=== PATIENT | female | born 1940 | race Caucasian/White ===

== ENCOUNTER 2018-06-01 11:23 | Emergency (ER) | payer MEDICARE ==
[2018-06-01 12:27] LABS: Hemoglobin 13.9 g/dL (12.0-16.0); Mean Corpuscular Hemoglobin 42.4 pg (27.0-31.0); Mean Platelet Volume 5.7 fL (7.4-10.4); Platelet Count 413 thou/uL (130-400); RBC Distribution Width 12.7 % (11.5-14.5); Red Blood Cell (RBC) Count 3.27 mill/uL (4.20-5.40); White Blood Cell (WBC) Count 10.7 thou/uL (4.8-10.8)
[2018-06-01 12:33] LABS: ALT (SGPT) 12 U/L (8-55); AST (SGOT) 25 U/L (5-34); Albumin 4.5 g/dL (3.4-4.8); Alkaline Phosphatase 123 U/L (40-150); Anion Gap 17 mmol/L (10-20); BUN (Urea Nitrogen) 10 mg/dL (9.8-20.1); Bilirubin, Total 0.6 mg/dL (0.2-1.2); CK (CPK) 38 U/L (29-168); Calc. Creatinine Clearance 0 mL/min (70-130); Calcium 9.5 mg/dL (7.8-10.44); Carbon Dioxide 22 mmol/L (23-31); Chloride 96 mmol/L (98-107); Estimated GFR-MDRD 55; Globulin 2.8 g/dL (2.4-3.5); Glucose 122 mg/dL (83-110); Lipase 14 U/L (8-78); Potassium 3.8 mmol/L (3.5-5.1); Protein, Total 7.3 g/dL (6.0-8.3); Sodium 131 mmol/L (136-145)
[2018-06-01 12:41] LABS: Band 2 % (5-11); Eosinophils 1 % (0-10); Lymphocytes 14 % (21-51); MDiff Complete? YES; Monocytes 3 % (0-10); Neutrophil 80 % (42-75); PLT Morphology Comment Appears Increased
--- NOTE | 2018-06-01 12:43 | RAD ---
ACUTE ABDOMINAL SERIES: DATE: 06/01/2018. PROVIDED CLINICAL HISTORY: Abdominal pain. FINDINGS: Comparison chest radiograph 11/25/2015. Cardiac and mediastinal silhouette is unchanged in appearance . No focal consolidation, pleural fluid, or pneumothorax apparent. Supine and upright abdominal radiographs demonstrate a nonspecific bowel gas pattern. There is no ev idence for pneumoperitoneum. Surgical clips are seen in the right upper quadrant. IMPRESSION: 1. No evidence for an acute cardiopulmonary process. 2. Nonspecific bowel gas pattern. POS: [facility]
--- NOTE | 2018-06-01 15:32 | RAD ---
SUPINE ABDOMEN: INDICATIONS: Constipation. FINDINGS: The bowel gas pattern is unremarkable. There is scattered stool and gas in the colon, which appears unremarkable. Small bowel gas pattern is unremarkable. No abnormal calcification. Post cholecystec shaun clips noted. Osseous structures are unremarkable. IMPRESSION: Unremarkable bowel gas pattern. POS: [facility]
[2018-06-01] MEDS ORDERED: Magnesium Citrate 300 ML BOT ONE (16:04)
== END 2018-06-01 16:20 | disposition home or self-care (01) ==
LOC: ERS 11:23
DX: K59.00 Constipation, unspecified (principal); R55 Syncope and collapse
CPT/HCPCS: 36415; 74018; 74022; 80053; 82550; 83690; 84484; 85025; 93005

== ENCOUNTER 2018-06-20 12:55 | Emergency (ER) | payer MEDICARE ==
[2018-06-20 13:47] LABS: #Basophils 0.1 thou/uL (0.0-0.2); #Lymphocytes 1.1 thou/uL (1.20-3.40); #Monocytes 0.6 thou/uL (0.11-0.59); #Neutrophils 8.1 thou/uL (1.40-6.50); %Basophils 0.9 % (0.0-1.0); %Eosinophils 0.5 % (0.0-10.0); %Monocytes 6.2 % (0.0-10.0); %Neutrophils 81.4 % (42.0-75.0); Hemoglobin 13.2 g/dL (12.0-16.0); Mean Corpuscular HGB CONC 34.6 g/dL (32.0-36.0); Mean Platelet Volume 5.8 fL (7.4-10.4); Platelet Count 476 thou/uL (130-400); RBC Distribution Width 12.4 % (11.5-14.5); Red Blood Cell (RBC) Count 3.15 mill/uL (4.20-5.40); White Blood Cell (WBC) Count 9.9 thou/uL (4.8-10.8)
[2018-06-20 14:03] LABS: ALT (SGPT) 11 U/L (8-55); AST (SGOT) 24 U/L (5-34); Albumin 4.5 g/dL (3.4-4.8); Alkaline Phosphatase 112 U/L (40-150); Anion Gap 15 mmol/L (10-20); BUN (Urea Nitrogen) 11 mg/dL (9.8-20.1); Bilirubin, Total 0.6 mg/dL (0.2-1.2); Calc. Creatinine Clearance 0 mL/min (70-130); Calcium 10.1 mg/dL (7.8-10.44); Carbon Dioxide 24 mmol/L (23-31); Chloride 93 mmol/L (98-107); Estimated GFR-MDRD 62; Glucose 108 mg/dL (83-110); Potassium 3.6 mmol/L (3.5-5.1); Protein, Total 7.5 g/dL (6.0-8.3); Sodium 128 mmol/L (136-145)
[2018-06-20 14:15] LABS: Bilirubin Negative (Negative); Blood, Urine Negative (Negative); Clarity CLEAR (Clear); Glucose, Urine (Dipstick) Negative (Negative); Leukocyte Large (Negative); Nitrite Negative (Negative); Protein, Urine (Dipstick) Negative (Neg-Trace); Specific Gravity, Urine 1.005 (1.002-1.036); Urobilinogen 0.2 mg/dL (0.2-1.0)
[2018-06-20 14:27] LABS: Hyaline Casts/LPF NONE SEEN LPF (0-3 Hyaline); Yeast-AUWi Flag 43.6 (0-25.0)
[2018-06-20 14:34] LABS: Bacteria/HPF None Seen HPF (None Seen); RBC/HPF 0-3 HPF (0-3); Yeast-All Forms None Seen HPF (None Seen)
[2018-06-20 14:35] LABS: Renal Epithelial 0-3 HPF (0-3); Squamous Epithelial 0-3 HPF (0-3); Transitional Epithelial 0-3 HPF (0-3); WBC/HPF 0-3 HPF (0-3)
--- NOTE | 2018-06-20 14:37 | CT ---
CT BRAIN WITHOUT CONTRAST: Comparison: None. History: Multiple falls with loss of consciousness and head trauma. Technique: Multiple contiguous axial images were obtained in a CT of the brain without contrast. FINDINGS: There are a few scattered hypodensities in the subcortical and periventricular white matter likely se condary to small vessel ischemic disease. No large confluent infarction is seen. There is no evidence of hydrocephalus, intracranial hemorrhage or extraaxial fluid collections. The calvarium and overlying soft tissues are unremarkable. The visualized paranasal sinuses and masto id air cells are well aerated. IMPRESSION: No evidence of acute intracranial abnormality. POS: [facility]
--- NOTE | 2018-06-20 14:38 | CT ---
CT CERVICAL SPINE WITHOUT CONTRAST: HISTORY: Multiple falls with neck pain. Loss of consciousness. COMPARISON: None. TECHNIQUE: Multiple contiguous axial images were obtained in a CT of the brain without contrast. FINDINGS: There are severe degenerative changes throughout the cervical spine. The vertebral bodies demonstrat e normal height and alignment without fracture or subluxation. No prevertebral soft tissue swelling is seen. Large, bulky anterior osteophytes are seen. The posterior facets are well aligned. Normal alignment of the skull base with the cervical spine is seen. IMPRESSION: No evidence of acute osseous abnormality of the cervical spine. POS: [facility]
== END 2018-06-20 15:04 | disposition home or self-care (01) ==
LOC: ERS 12:55
DX: R53.1 Weakness (principal); E87.1 Hypo-osmolality and hyponatremia; R29.6 Repeated falls
CPT/HCPCS: 36415; 70450; 72125; 80053; 81003; 81015; 85025

== ENCOUNTER 2019-07-06 15:32 | Inpatient (IN) | payer MEDICARE ==
[2019-07-06 16:32] LABS: Bilirubin Negative (Negative); Blood, Urine Negative (Negative); Clarity Clear (Clear); Glucose, Urine (Dipstick) Normal (Negative); Leukocyte 250 Leu/uL (Negative); Nitrite Negative (Negative); Protein, Urine (Dipstick) 30 mg/dL (Neg-Trace); RBC/HPF 0-3 HPF (0-3); Squamous Epithelial None Seen HPF (0-3); Urobilinogen Normal mg/dL (Less than 2); WBC/HPF 21-50 HPF (0-3)
[2019-07-06 16:41] LABS: Bacteria/HPF 2+ HPF (None Seen)
--- NOTE | 2019-07-06 16:49 | RAD ---
AP PELVIS RADIOGRAPH: 07/06/19 HISTORY: Unwitnessed fall. Patient found on bathroom floor down by EMS. COMPARISON: Views of the abdomen on 06/01/18. FINDINGS: Degenerative changes are seen in the lower lumbar spine. No fracture or subluxation is seen involving the pelvis. Degenerative changes are seen involving each sacroiliac joint. Phleboliths overlie the p jennifer. IMPRESSION: No acute osseous abnormality. POS: [facility]
--- NOTE | 2019-07-06 16:51 | RAD ---
PORTABLE AP CHEST X-RAY: 07/06/19 HISTORY: Patient found down in bathroom by EMS. COMPARISON: 06/01/18 FINDINGS: The cardiac silhouette and pulmonary vasculature are within normal limits with the portable technique of the study. The lungs remain clear. Degenerative changes seen in the thoracic spine. Surgical clip s again overlie the left axillary region. There has been no interval change when compared to the prio r exam. IMPRESSION: Stable chest without evidence of an acute cardiopulmonary process. POS: [facility]
--- NOTE | 2019-07-06 17:00 | CT ---
NONCONTRAST CT HEAD 07/06/19 HISTORY: Unwitnessed fall. Patient found on bathroom floor by EMS. COMPARISON: 06/20/18. FINDINGS: There is a 2 cm x 1.6 cm mass see in the posterior aspect of the left parietal region which does abut the region of the posterior aspect of the sagittal sinus. This demonstrates mild increased density a nd is thought to be extra-axial in location and probably represents a meningioma. This is larger in s ize compared to the study in 2019 where this lesion measured approximately 1.7 cm x 0.6 cm. There is mild diminished attenuation of the periventricular white matter which is nonspecific but lik lele reflective of chronic small vessel ischemic changes. There is no evidence of an acute cortical in farction, hemorrhage, mass effect or midline shift. There is a low density area in the region of the cerebellar vermis to the left of midline as well as an additional area in the right aspect of the ambika s which is likely related to areas of volume averaging, and similar finding was seen on prior exam. No acute cortical infarction, hemorrhage, mass effect, or midline shift is seen. The ventricular syst em is normal in size, shape and position. There is mild cerebral volume loss. No calvarial fracture is seen. No other interval change. IMPRESSION: 1. Enlarging extra-axial mass in the left posterior parietal region. This is thought to most lik lele be related to hemangioma, but given interval enlargement, a nonemergent MRI of brain is recommend ed. 2. Additional findings as described above. No acute intracranial abnormality is demonstrated. Code T POS: [facility]
[2019-07-06 17:02] LABS: Hemoglobin 13.4 g/dL (12.0-16.0); Mean Corpuscular HGB CONC 34.1 g/dL (32.0-36.0); Mean Corpuscular Hemoglobin 39.3 pg (27.0-31.0); Mean Platelet Volume 6.2 fL (7.4-10.4); Platelet Count 428 thou/uL (130-400); RBC Distribution Width 14.4 % (11.5-14.5); Red Blood Cell (RBC) Count 3.41 mill/uL (4.20-5.40)
[2019-07-06 17:05] LABS: #Eosinphils 0.1 thou/uL (0.0-0.7); #Lymphocytes 1.3 thou/uL (1.20-3.40); #Neutrophils 12.1 thou/uL (1.40-6.50); %Eosinophils 0.4 % (0.0-10.0); %Lymphocytes 8.9 % (21.0-51.0); %Monocytes 7.1 % (0.0-10.0); %Neutrophils 83.6 % (42.0-75.0); White Blood Cell (WBC) Count 14.4 thou/uL (4.8-10.8)
--- NOTE | 2019-07-06 17:06 | CT ---
NONCONTRAST CT CERVICAL SPINE: 07/06/19 HISTORY: Unwitnessed fall. Patient found down. COMPARISON: 06/20/18. FINDINGS: Multilevel degenerative changes are again seen throughout the cervical spine with large anterior brid ging osteophytes at multiple levels of the cervical spine, greatest at the C2-3 and C3-4 levels. Prom inent facet hypertrophic changes are seen at multiple levels with prominent facet hypertrophic change s seen on the right at C4-5 level with fusion of the facet joints in this region. There is trace anterolisthesis of C4 on C5, C5 on C6 and C6 on C7 unchanged from prior exam. No traum atic subluxation is identified. There are prominent degenerative changes seen at the articulation of the odontoid with anterior arch of C1. The vertebral body heights are within normal limits. There is moderate right sided neural foraminal narrowing at C4-5 level related to this severe facet h ypertrophic changes at this level. There is mild right and moderate left sided neural foraminal narro wing at the C5-6 level as well due to facet hypertrophic changes. No prevertebral soft tissue swelling is seen. There is fluid density seen within the vallecula on the right which is thought to most likely be attr ibutable to secretions. There has been no additional interval change when compared to the prior exam. IMPRESSION: 1. No evidence of an acute fracture or traumatic subluxation. 2. Multilevel degenerative changes as described above. POS: [facility]
[2019-07-06 17:16] LABS: ALT (SGPT) 25 U/L (8-55); AST (SGOT) 54 U/L (5-34); Albumin 4.6 g/dL (3.4-4.8); Alkaline Phosphatase 109 U/L (40-110); Anion Gap 22 mmol/L (10-20); BUN (Urea Nitrogen) 14 mg/dL (9.8-20.1); Bilirubin, Total 0.9 mg/dL (0.2-1.2); Calc. Creatinine Clearance 0 mL/min (70-130); Calcium 8.8 mg/dL (7.8-10.44); Carbon Dioxide 15 mmol/L (23-31); Chloride 103 mmol/L (98-107); Estimated GFR-MDRD 58; Glucose 118 mg/dL (83-110); Magnesium 1.9 mg/dL (1.6-2.6); Potassium 4.1 mmol/L (3.5-5.1); Protein, Total 7.6 g/dL (6.0-8.3); Sodium 136 mmol/L (136-145)
[2019-07-06] MEDS ORDERED: cefTRIAXone\\ROCEPHIN 2 GM VIAL ONE (18:52)
[2019-07-06] MEDS ORDERED: Ondansetron PF 4 MG/2 ML Vial IVP PRN ×2 (20:30→22:29)
[2019-07-06] MEDS ORDERED: Acetaminophen 325 MG TAB PO PRN ×2 (20:30→22:29)
[2019-07-06] MEDS ORDERED: Ondansetron ODT 4 MG TAB SL PRN (20:30)
[2019-07-06] MEDS ORDERED: Sodium Chloride 0.9% 1,000 ML IV SCH (20:30)
[2019-07-06 21:04] VITALS: BMI 25.9
[2019-07-06] MEDS: Sodium Chloride 0.9% 1,000 ML IV SCH (22:20)
[2019-07-06] MEDS ORDERED: Bisacodyl 10 MG SUPP PR PRN (22:29)
[2019-07-06] MEDS ORDERED: Senokot S 8.6-50 MG TAB PO PRN (22:29)
[2019-07-06] MEDS ORDERED: Guaifenesin DM 100-10/5 ML UDCUP PO PRN (22:29)
[2019-07-06] MEDS ORDERED: HYDROcodone/Acetaminophen 5/325 mg Tablet PO PRN (22:29)
--- NOTE | 2019-07-06 23:02 | HP ---
PRIMARY CARE PHYSICIAN: Dr. Alexander. REASON FOR ADMISSION: Acute metabolic encephalopathy, urinary tract infection, recurrent falls. HISTORY OF PRESENTING ILLNESS: The patient gives history of falling today while she was trying to go up steps. She also mentions that she has fallen nearly 3 times from the last 3 days. She has a tendency to fall to her right side. She is not weak on any extremities. Does not use any ambulatory devices. [place] and has multiple animals including 60 cows, 3 big dogs, 18-20 calves, which she takes care of them. She has a nephew who comes to help her at times. No prior history of stroke. She has multiple lacerations on both arms and contusions on her knees, both sides. No complaints of fever. No complaints of increased urinary frequency or urgency. No cough or expectoration or chest pain. PAST MEDICAL AND SURGICAL HISTORY: History of bilateral mastectomy for cancers, thrombocytosis for which she is on hydroxyurea, she used to see Dr. Christian in the past. Hysterectomy, cholecystectomy, appendectomy, hypertension, and insomnia. CURRENT MEDICATIONS: The patient does not recall all her medications. She goes to [facility] in [place]. We will try to obtain medications from there in the morning when it opens. She knows she takes hydroxyurea, 2 sleeping pills, one of which is amitriptyline, states she takes 2 pills of it at bedtime. ALLERGIES: NO KNOWN DRUG ALLERGIES. PERSONAL HISTORY: She drinks occasional scotch. Does not abuse drugs or smoke. Her 2 years back. FAMILY HISTORY: The patient had a son who of stomach cancer. 2 years ago. Mother at a young age of 35 years, she had a shuffling gait, she does not recall the exact cause of her . CODE STATUS: The patient wants to be do not attempt to resuscitate. Power of tax attorney is her nephew, Mr. Too Dowling. REVIEW OF SYSTEMS: CONSTITUTIONAL: Negative for weight loss or gain, ability to conduct usual activities. SKIN: Negative for rash, itching. EYES: Negative for double vision, pain. ENT/MOUTH: Negative for nose bleeding, neck stiffness, pain, tenderness. CARDIOVASCULAR: Negative for palpitations, dyspnea on exertion, orthopnea. RESPIRATORY: Negative for shortness of breath, wheezing, cough, hemoptysis, fever or night sweats. GASTROINTESTINAL: Negative for poor appetite, abdominal pain, heartburn, nausea , vomiting, constipation, or diarrhea. GENITOURINARY: Negative for urgency, frequency, dysuria, nocturia. MUSCULOSKELETAL: Negative for pain, swelling. NEUROLOGIC/PSYCHIATRIC: Negative for anxiety, depression. ALLERGY/IMMUNOLOGIC: Negative for skin rash, bleeding tendency. Otherwise, negative except as stated per HPI. PHYSICAL EXAMINATION: GENERAL: The patient is a 79-year-old female, who is currently not in any acute distress. VITAL SIGNS: Blood pressure 130/60, pulse 86 per minute, temperature 97.5 degrees Fahrenheit, and saturating 96% on room air. Respiratory rate is 18 per minute. NECK: Supple. No elevated JVD. HEENT: Eyes; extraocular muscles intact. Pupils reacting to light. Oral cavity, mucous membranes are dry. No exudates or congestion. CARDIOVASCULAR: S1 and S2 heard, regular rhythm. RESPIRATORY: Air entry 1+ bilateral. No rales or rhonchi. ABDOMEN: Soft. Bowel sounds heard. No tenderness, rigidity, or guarding. EXTREMITIES: The patient has multiple abrasions on both elbows, left forearm, bilateral knees, left scapular area. She also has multiple contusions on both legs, specifically around the left knee which is worse. No calf tenderness. No edema. Peripheral pulses are 1+ bilateral. No ischemic ulcerations or gangrene. CENTRAL NERVOUS SYSTEM: No gross focal deficits noted. Strength is 5/5 in all 4 extremities. PSYCHIATRIC: The patient's mood is euthymic. No hallucinations or delusions. LABORATORY DATA: White count of 14, H and H 13 and 39, platelet count 428, MCV is 115 with 83% neutrophils. Electrolytes stable. Serum bicarb is low at 15, BUN 14, creatinine 0.9, serum glucose 118, AST 54, ALT 25, CK levels 559. Troponin I 0.01. Albumin is 4.6. UA shows signs of UTI. CT brain without contrast done shows 2 x 1.6 cm mass in the left parietal region. This is thought to be extra-axial in location, probably represents a meningioma. This is slightly larger in size when compared to prior CAT scan done on . CT cervical spine without contrast done shows multilevel degenerative changes. No acute fracture or traumatic subluxation seen. Pelvic x-ray done shows no acute osseous abnormality. Chest x-ray done shows no acute cardiopulmonary abnormality. EKG done shows sinus rhythm at 93 beats with T inversion seen in V2, V3. Please note, EKG is of poor quality. CLINICAL IMPRESSION AND PLAN: The patient will be admitted to medical floor for recurrent falls, acute metabolic encephalopathy and urinary tract infection. We will obtain blood and urine cultures. She will be empirically placed on Levaquin. Gentle hydration with normal saline at 70 mL per hour. The patient states she has had history of trouble swallowing in the past. In view of this, we will obtain a speech consultation. The patient also mentions that she has a tendency to fall to her right side. She has had this left parietal mass, it is unclear if it is contributing in any way to her falls and we will obtain MRI without contrast and a neurosurgical consultation as well. The MRI is also to rule out brainstem infarct if any. Clinically, the patient appears to have good strength in all extremities. Her MCV is elevated. We will obtain folic acid and B12 levels. She will be on oral B12 and folic acid replacements. PT and OT evaluations will be requested. The patient likely will need to go to rehab or a swing bed for a few days to stabilize herself, get her strength back, to prevent fractures with repeated falling. We will continue to closely monitor her on medical floor. Job ID: [id number] [facility]
[2019-07-07 05:35] LABS: #Basophils 0.1 thou/uL (0.0-0.2); #Eosinphils 0.1 thou/uL (0.0-0.7); #Lymphocytes 1.2 thou/uL (1.20-3.40); #Monocytes 0.9 thou/uL (0.11-0.59); #Neutrophils 7.3 thou/uL (1.40-6.50); %Basophils 0.6 % (0.0-1.0); %Lymphocytes 12.4 % (21.0-51.0); %Monocytes 9.3 % (0.0-10.0); %Neutrophils 76.7 % (42.0-75.0); Hemoglobin 10.9 g/dL (12.0-16.0); Mean Corpuscular Hemoglobin 38.2 pg (27.0-31.0); Mean Platelet Volume 6.3 fL (7.4-10.4); Platelet Count 396 thou/uL (130-400); RBC Distribution Width 14.8 % (11.5-14.5); Red Blood Cell (RBC) Count 2.85 mill/uL (4.20-5.40); White Blood Cell (WBC) Count 9.5 thou/uL (4.8-10.8)
[2019-07-07 06:05] LABS: Anion Gap 15 mmol/L (10-20); BUN (Urea Nitrogen) 12 mg/dL (9.8-20.1); Calc. Creatinine Clearance 61 mL/min (70-130); Calcium 8.1 mg/dL (7.8-10.44); Carbon Dioxide 18 mmol/L (23-31); Chloride 107 mmol/L (98-107); Estimated GFR-MDRD 66; Glucose 75 mg/dL (83-110); Iron 95 ug/dL (50-170); Iron Binding Capacity, Total 199 mcg/dL (265-497); Potassium 3.4 mmol/L (3.5-5.1); Sodium 137 mmol/L (136-145)
[2019-07-07 06:26] LABS: Ferritin 351.99 ng/mL (10-291)
[2019-07-07] MEDS: Famotidine/PF 20 mg/2ml Vial SLOW IVP SCH ×2 (08:36→21:40)
[2019-07-07] MEDS: Enoxaparin Sodium 40 MG/0.4 ML SYRINGE SC SCH (08:36)
--- NOTE | 2019-07-07 10:15 | PRG ---
DATE OF SERVICE: 07/07/2019 SUBJECTIVE: The patient is seen and examined at the bedside. She complains about soreness all over her body that is most likely from the falls. OBJECTIVE: VITAL SIGNS: Blood pressure is 145/79, pulse is 94, temperature is 98.2, respirations 16, O2 saturation is 96% on room air. HEENT: Her head is posttraumatic and normocephalic. Pupils are responding to light properly. Sclerae are nonicteric. Conjunctivae are pinkish. Oral mucosa is dry. LUNGS: Clear. HEART: S1 and S2 normal. No S3. No S4. ABDOMEN: Soft, nontender. EXTREMITIES: No clubbing, cyanosis, or edema. She has multiple excoriations all over her body on the skin. NEUROLOGIC: She is alert and oriented x3, but for some reason, she thinks that she is in [employer] in the hospital, although when she is asked about the current situation, she snaps out of this and says that she is in [facility]. She is able to move her all 4 extremities. She does not show any focal deficits. LABORATORY DATA: White count of 9.5, hemoglobin 10.9, hematocrit 33.0, platelet count 396,000. Sodium of 137, potassium 3.4, chloride 107, CO2 of 18, BUN 12, creatinine 0.83, glucose 75, TIBC 199, ferritin 351.99. AST 54, ALT 25, creatine kinase is 559. Vitamin B12 618, folic acid 4.6. Urinalysis showed 30 of proteins, 80 of ketones, 250 of leukocyte esterase, 21 to 50 wbc's in 2+ bacteria. Microbiology; urine culture showing presumptive Pseudomonas in 10,000 to [id number] colonies. Sensitivity is still pending. IMPRESSION: 1. Acute metabolic encephalopathy, improved. 2. Most likely urinary tract infection with Pseudomonas. 3. Frequent falls. I suspect that this is secondary to orthostatic hypotension, but we will do orthostatics on her. 4. Tumor of the brain, which is probably meningioma, but the patient is awaiting MRI on that issue to further find out what kind of tumor it is. 5. Swallowing problem with some history of swallowing problem in the past. We are waiting for speech therapist to evaluate her and make decision whether it is safe to start feeding her. So at this point, we will continue IV fluids and we will do MRI. Echo is still pending. A neurosurgical consultation is pending. We will continue her Levaquin for possible urinary tract infection. We will continue deep venous thrombosis prophylaxis. We will get a case management consultation for rehab placement after hospitalization, and we will obtain orthostatics. I think she has this problem going on for quite some time. According to her, she has been dizzy for approximately 3 years and each time when she gets up, she gets dizzy. Job ID: [id number]
--- NOTE | 2019-07-07 11:06 | MRI ---
EXAM: MRI of the brain without and with contrast HISTORY: Possible left parietal mass COMPARISON: CT brain 07/06/2019 TECHNIQUE: Multiplanar multisequence MR images were obtained of the brain without and with IV contras t. FINDINGS: There is a homogeneously enhancing mass along the left parietal convexity near the transverse sinus m easuring 2.6 cm in width. This demonstrates dural tails and is consistent with a meningioma. No other abnormal areas of enhancement are seen. A solitary focus of high T2/FLAIR signal in the right periventricular white matter may be secondary t o small vessel ischemic disease. No restricted diffusion. No hydronephrosis. No extra-axial fluid collection or intracranial hemorrhage. The expected flow voids are present. Corpus callosum, pituitary, and craniocervical junction are within normal limits. The calvarium and overlying soft tissues are unremarkable. The paranasal sinuses and mastoid air cells are well aerated. IMPRESSION: Left parietal meningioma
[2019-07-07] MEDS: Famotidine 20 MG TAB PO SCH ×2 (11:35→21:42)
[2019-07-07] MEDS: Folic Acid 1 MG TAB PO SCH (11:41)
[2019-07-07] MEDS: Cyanocobalamin (Vitamin B-12) 1,000 MCG TAB PO SCH (11:41)
[2019-07-07] MEDS ORDERED: Magnevist 469MG/ML 20 ML VIAL ONE (14:29)
[2019-07-07] MEDS: Sodium Chloride 0.9% 1,000 ML IV SCH (14:33)
--- NOTE | 2019-07-07 18:44 | CON ---
DATE OF CONSULTATION: This is Chai Scruggs PA-C dictating a report for Emil Carter MD. TIME SPENT: A 50-minute initial patient evaluation, of which greater than 50% of the exam was spent counseling and coordinating the patient's care. Remainder of the exam was spent reviewing the patient's medical records and formulation of treatment plan. CHIEF COMPLAINT: Increased falls with left parietal meningioma. HISTORY OF PRESENT ILLNESS: Ms. Dowling is a pleasant 79-year-old female, who was admitted by our hospital colleagues in regard to some altered mental status and increased falls over the past 3 days. The patient is a rather poor historian, but she is able to tell me that she has had some increased falls. She denies any history of CVA and supposedly is not on any blood thinners. She does live alone at home. She denies dizziness, nausea, or vomiting, though feels as though she is overall generally weak in all the extremities. Review of the patient's head CT from yesterday compared to one in June 2018 shows growth of left parietal meningioma with some surrounding vasogenic edema. I should also note that the patient, however, has noticed over the past several weeks some word-finding difficulties and this is bothersome to her. PHYSICAL EXAMINATION: The patient is awake, alert, and appropriate. She is oriented, unable to provide some of her history. She follows commands equally in all 4 extremities. She does not appear to have any pronator drift. Her pupils are equal, round, and reactive bilaterally and she is able to tell me appropriately that she sees 2 fingers and then 4 fingers when testing her visual frausto. She does have some abrasion secondary to falls along the bilateral forearms and even a small abrasion along the bridge of her nose. She is able to correctly identify a pen and define its purpose as well as correctly define an island. She does occasionally have some word-finding difficulties, but no slurred speech. She is clear and coherent. The patient does appear to have a little bit of dysmetria when testing [id number] testing. IMPRESSION/DIAGNOSES: 1. Increased falls with left occipital meningioma with slight surrounding vasogenic edema. 2. Word-finding difficulties. PLAN: At this time, we will follow up on the patient's MRI of the brain with and without contrast given that she has a brain mass likely consistent with meningioma. This will also determine if the patient has had a recent CVA. At this point, there is no role for emergent neurosurgical intervention, and we will follow up on her MRI, though at this point there may not even be a role for surgery. I should note that we reviewed her cervical spine CT and I reviewed all the images and case with Dr. Carter. There does not appear to be any fracture of the cervical spine, though does appear to have some pannus formation at the anterior C1-C2 level. This may indicate rheumatoid arthritis or significant progressive osteoarthritis. The patient notes that she has never been diagnosed with rheumatoid arthritis. Nonetheless, we will follow up on her brain MRI. Please call with any changes in the patient's neurologic status. Job ID: [id number]
[2019-07-08] MEDS: Sodium Chloride 0.9% 1,000 ML IV SCH ×2 (02:22→17:54)
[2019-07-08 05:39] LABS: #Eosinphils 0.1 thou/uL (0.0-0.7); #Lymphocytes 1.5 thou/uL (1.20-3.40); #Monocytes 0.8 thou/uL (0.11-0.59); #Neutrophils 4.2 thou/uL (1.40-6.50); %Basophils 0.6 % (0.0-1.0); %Eosinophils 1.5 % (0.0-10.0); %Lymphocytes 22.3 % (21.0-51.0); %Monocytes 11.9 % (0.0-10.0); %Neutrophils 63.7 % (42.0-75.0); Hemoglobin 11.2 g/dL (12.0-16.0); Mean Corpuscular HGB CONC 33.6 g/dL (32.0-36.0); Mean Platelet Volume 6.2 fL (7.4-10.4); Platelet Count 397 thou/uL (130-400); RBC Distribution Width 14.6 % (11.5-14.5); Red Blood Cell (RBC) Count 2.96 mill/uL (4.20-5.40); White Blood Cell (WBC) Count 6.5 thou/uL (4.8-10.8)
[2019-07-08 06:02] LABS: Anion Gap 12 mmol/L (10-20); BUN (Urea Nitrogen) 5 mg/dL (9.8-20.1); Calc. Creatinine Clearance 73 mL/min (70-130); Calcium 8.1 mg/dL (7.8-10.44); Carbon Dioxide 22 mmol/L (23-31); Chloride 102 mmol/L (98-107); Estimated GFR-MDRD 81; Glucose 90 mg/dL (83-110); Sodium 133 mmol/L (136-145)
[2019-07-08 06:05] LABS: Potassium 2.8 mmol/L (3.5-5.1)
[2019-07-08] MEDS ORDERED: Potassium Chloride 20 MEQ TAB PO SCH (06:30)
[2019-07-08] MEDS: Enoxaparin Sodium 40 MG/0.4 ML SYRINGE SC SCH (10:36)
[2019-07-08] MEDS: Cyanocobalamin (Vitamin B-12) 1,000 MCG TAB PO SCH (11:20)
[2019-07-08] MEDS: Famotidine 20 MG TAB PO SCH ×2 (11:20→21:46)
[2019-07-08] MEDS: Famotidine/PF 20 mg/2ml Vial SLOW IVP SCH ×3 (11:20→21:44)
[2019-07-08] MEDS: Folic Acid 1 MG TAB PO SCH (11:21)
[2019-07-08] MEDS: Potassium Chloride 20 MEQ TAB PO SCH ×3 (11:21→21:42)
--- NOTE | 2019-07-08 14:17 | RAD ---
Modified barium swallow HISTORY: Dysphagia. Difficulty swallowing. Feeding difficulties. FINDINGS: Exam was performed in conjunction with speech pathology with multiple consistencies. Video review is available and demonstrates good bolus formation and retropulsion. Some early spill of contrast to the level of the valleculae and piriform sinuses. Intermittent deep penetration. Some cou ghing by the patient. Eventual aspiration, with contrast along the anterior margin of the upper trachea. Prominent osteophytosis anteriorly from the cervical spine at the C4-5 level indents the posterior as pect of the upper esophagus but does not obstruct contrast. There is significant pooling within the valleculae and piriform sinuses. Limited clearance upon secondary swallowing. Clearance was improved with neck flexed. The esophagus below the level of the hypopharynx was not evaluated. Please see separate detailed repo rt from speech pathology.
--- NOTE | 2019-07-08 15:04 | PDOC.HOSPP ---
- Subjective Encounter Date: 07/08/19 Encounter Time: 15:03 Subjective: alert, cooperative - Objective Vital Signs & Weight: Vital Signs (12 hours) Temp Pulse Resp BP BP Pulse Ox 07/08/19 11:10 98.1 F 87 15 162/71 H 96 07/08/19 07:09 98.2 F 86 18 158/87 H 91 L 07/08/19 04:00 97.9 F 87 18 151/70 H 98 Weight Weight 155 lb 12.8 oz I&O: 07/07/19 07/08/19 07/09/19 06:59 06:59 06:59 Intake Total 3030 240 Output Total 300 Balance 2730 240 Result Diagrams: 07/08/19 05:09 07/08/19 05:09 Hospitalist ROS - Medication Medications: Active Medications Generic Name Dose Route Start Last Admin Trade Name Freq PRN Reason Stop Dose Admin Cholecalciferol 1,000 units 07/07/19 09:00 07/08/19 11:20 Vitamin D3 PO Not Given DAILY [facility] Enoxaparin Sodium 40 mg 07/07/19 09:00 07/08/19 10:36 Lovenox SC 40 mg 09 GAURI Administration Famotidine 20 mg 07/07/19 09:00 07/08/19 11:20 Pepcid PO Not Given BID GAURI Famotidine 20 mg 07/07/19 09:00 07/08/19 11:20 Pepcid SLOW IVP Not Given BID GAURI Folic Acid 1 mg 07/07/19 09:00 07/08/19 11:21 Folvite PO Not Given DAILY GAURI Sodium Chloride 1,000 mls @ 70 mls/hr 07/06/19 22:30 07/08/19 02:22 Normal Saline 0.9% IV 1,000 mls .[id number] GAURI Administration Potassium Chloride 40 meq 07/08/19 09:00 07/08/19 11:21 K-Dur PO 07/08/19 21:01 Not Given TID GAURI Sodium Chloride 10 ml 07/06/19 22:36 07/07/19 21:40 Flush - Normal Saline IVF 10 ml PRN PRN Administration Saline Flush - Exam General Appearance: awake alert Neck: no JVD Heart: RRR, no murmur Heart - other findings: occ premature beats Gastrointestinal: soft, normal bowel sounds Extremities: no edema Neurological: cranial nerve grossly intact, no weakness, no focal deficits Neurological - other findings: F-N-F normal, strength grossly normal Hosp A/P (1) UTI (urinary tract infection) Status: Acute (2) Meningioma Code(s): D32.9 - BENIGN NEOPLASM OF MENINGES, UNSPECIFIED Status: Acute (3) Encephalopathy Code(s): G93.40 - ENCEPHALOPATHY, UNSPECIFIED Status: Acute (4) Macrocytic anemia Code(s): D53.9 - NUTRITIONAL ANEMIA, UNSPECIFIED Status: Acute - Plan replace folate serial neuro exams
--- NOTE | 2019-07-08 15:34 | PRG ---
DATE OF SERVICE: 07/08/2019 This is Chai Scruggs PA-C dictating a report for Emil Carter MD. This is a 50-minute subsequent patient evaluation, of which greater than 50% of the exam was spent counseling and coordinating the patient's care, remainder of the exam was spent in review of patient's medical records and review of appropriate imaging studies. Dr. Carter and I reviewed the patient's brain MRI with and without contrast yesterday. There was no evidence of CVA. There was appearance, however, evidence of left parietal lobe meningioma that has grown in size compared to her CT scan June 2018. At this point, though as the lesion is less than 3 cm, the patient would be an excellent candidate for radiosurgery and does not need any open neurosurgical intervention. Medical colleagues will help arrange a consult with Radiation Oncology to see when this can begin. On physical examination, the patient is more awake today. She looks as though she is feeling better today. She is comfortably eating a soft diet breakfast. She follows commands in all extremities. She is oriented. She does not appear to have quite word-finding difficulty today as she did yesterday. At this point, Neurosurgery will sign off from the patient as there is no role for intervention from our regard. Job ID: [id number]
[2019-07-09] MEDS: Cefepime 1 GM in Sodium Chloride 0.9% 100 ML IVPB SCH ×2 (05:21→16:59)
[2019-07-09] MEDS: Sodium Chloride 0.9% 1,000 ML IV SCH (06:47)
[2019-07-09] MEDS: Famotidine 20 MG TAB PO SCH (08:32)
[2019-07-09] MEDS: Folic Acid 1 MG TAB PO SCH (08:32)
[2019-07-09] MEDS: Famotidine/PF 20 mg/2ml Vial SLOW IVP SCH (08:33)
[2019-07-09] MEDS: Enoxaparin Sodium 40 MG/0.4 ML SYRINGE SC SCH (08:33)
[2019-07-09 11:55] VITALS: BP 150/83; TEMP 97.5
--- NOTE | 2019-07-09 14:55 | DIS ---
DATE OF ADMISSION: 07/06/2019 DATE OF DISCHARGE: 07/09/2019 PRIMARY CARE PROVIDER: Dr. Seamus Alexander. FINAL DIAGNOSES: Urinary tract infection. Benign neoplasm of the meninges. Macrocytic anemia. Folate deficiency. DISCHARGE MEDICATIONS: 1. Potassium chloride 20 mEq twice a day. 2. Hydroxyurea 1000 mg a day. 3. Xanax 0.25 mg q.i.d. p.r.n. 4. Triamterene/hydrochlorothiazide 37.5/25 one a day. 5. Amitriptyline 100 mg at bedtime. 6. Celexa 20 mg a day. 7. Folic acid 1 mg a day. 8. Ceftin 250 mg p.o. b.i.d. for 7 days. ALLERGIES: NO KNOWN DRUG ALLERGIES. DIET: Regular. CODE STATUS: Do not attempt resuscitation. PENDING AT TIME OF DISCHARGE: Nothing. HOSPITAL COURSE: The patient admitted to [facility] through [facility] with acute metabolic encephalopathy and urinary tract infection. She was placed on IV fluids, IV Levaquin, a brain CT revealed an enlarging extra-axial mass in the left posterior parietal region. A followup MRI diagnosed a left parietal meningioma. She was seen in consultation by Chai Scruggs for Emil Carter, recommended neuro exams; if normal, could be discharged. The patient's neurological exam per my evaluation has been remarkably normal. Initial laboratory showed a white count of 14.4, followup at 24 hours 9.5, followup at 24 more 6.5. Hemoglobin ranged from 13.4 to 10.9. Platelet counts are approximately 400,000 +/-. On admission, she had a mild acidosis with a CO2 of 25. Comprehensive metabolic profile otherwise normal. Currently, the CO2 has improved to normal 22. The patient had a folate level which was low, B12 level which was normal, and a ferritin level which was high. She was placed on folic acid for folate deficiency. She is currently alert, wishes to go home and feed her animals. She is being discharged home with followup in 3 days by her PCP. Job ID: [id number]
== END 2019-07-09 17:25 | disposition home or self-care (01) | DRG 54 ==
LOC: ERS 15:32 → SURG B 20:28
PROVIDERS: ADMIT Internal Medicine; ATTEND Internal Medicine
DX: D32.0 Benign neoplasm of cerebral meninges (principal); G93.6 Cerebral edema; G93.41 Metabolic encephalopathy; N39.0 Urinary tract infection, site not specified; I95.1 Orthostatic hypotension; Z90.13 Acquired absence of bilateral breasts and nipples; Z85.3 Personal history of malignant neoplasm of breast; Z90.49 Acquired absence of other specified parts of digestive tract; I10 Essential (primary) hypertension; G47.00 Insomnia, unspecified; Z66 Do not resuscitate; B96.5 Pseudomonas (aeruginosa) (mallei) (pseudomallei) as the cause of diseases classified elsewhere; D53.9 Nutritional anemia, unspecified; S80.02XA Contusion of left knee, initial encounter; S80.01XA Contusion of right knee, initial encounter; W18.30XA Fall on same level, unspecified, initial encounter; E53.8 Deficiency of other specified B group vitamins
CPT/HCPCS: 36415; 51701; 70450; 70553; 71045; 72125; 72170; 74230; 80048; 80053; 81003; 81015; 82274; 82550; 82607; 82728; 82746; 83540; 83550; 83605; 83735; 84132; 84484; 85025; 87040; 87077; 87086; 87186; 93005; 93306; 96361; 96365; A9579; J0692; J0696; J1650; J1956; J3490; S0028

== ENCOUNTER 2020-06-10 21:05 | Inpatient (IN) | payer MEDICARE ==
[~2020-06-10 21:05] MED LIST: Iopamidol-370 76% 500 ML 1 ML ONE
[2020-06-10] MEDS ORDERED: Aspirin 325 MG TAB ONE (22:11)
[2020-06-10 22:12] LABS: #Eosinphils 0.1 thou/uL (0.0-0.7); #Lymphocytes 1.7 thou/uL (1.20-3.40); #Monocytes 0.6 thou/uL (0.11-0.59); #Neutrophils 8.4 thou/uL (1.40-6.50); %Basophils 0.3 % (0.0-1.0); %Eosinophils 0.7 % (0.0-10.0); %Lymphocytes 15.6 % (21.0-51.0); %Monocytes 5.6 % (0.0-10.0); %Neutrophils 77.8 % (42.0-75.0); Hemoglobin 12.3 g/dL (12.0-16.0); Mean Corpuscular HGB CONC 33.9 g/dL (32.0-36.0); Mean Corpuscular Hemoglobin 38.3 pg (27.0-31.0); Mean Platelet Volume 6.4 fL (7.4-10.4); Platelet Count 400 thou/uL (130-400); RBC Distribution Width 13.5 % (11.5-14.5); Red Blood Cell (RBC) Count 3.22 mill/uL (4.20-5.40); White Blood Cell (WBC) Count 10.8 thou/uL (4.8-10.8)
[2020-06-10 22:29] LABS: ALT (SGPT) 10 U/L (8-55); AST (SGOT) 19 U/L (5-34); Acetaminophen Less than 6.0 mcg/mL (10.0-30.0); Alcohol 13 mg/dL (Less than 10); Alkaline Phosphatase 134 U/L (40-110); Anion Gap 17 mmol/L (10-20); BUN (Urea Nitrogen) 11 mg/dL (9.8-20.1); Bilirubin, Total 0.4 mg/dL (0.2-1.2); Calc. Creatinine Clearance 0 mL/min (70-130); Calcium 9.1 mg/dL (7.8-10.44); Carbon Dioxide 20 mmol/L (23-31); Chloride 100 mmol/L (98-107); Globulin 3.4 g/dL (2.4-3.5); Glucose 72 mg/dL (83-110); Magnesium 1.8 mg/dL (1.6-2.6); Potassium 3.1 mmol/L (3.5-5.1); Protein, Total 7.4 g/dL (6.0-8.3); Salicylate Less than 8.0 mg/dL (15.0-30.0); Sodium 134 mmol/L (136-145)
--- NOTE | 2020-06-10 22:54 | CT ---
CT BRAIN 06/10/20 PROVIDED CLINICAL HISTORY: Left sided arm and leg numbness. FINDINGS: Comparison is made with the examination dated 05/13/20. The ventricular system appears normal in size and morphology. There is no evidence for intracranial hemorrhage or mass effect. Left frontoparietal region meningioma near the vertex is unchanged. The extracranial soft tissues and osseous structures demonstrate an unremarkable CT appearance. IMPRESSION: No evidence for intracranial hemorrhage or mass effect. POS: KWADWO
[2020-06-11 01:42] LABS: Troponin I Less than 0.010 ng/mL (< 0.028)
--- NOTE | 2020-06-11 02:05 | PDOC.HHP ---
Hospitalist HPI - History of Present Illness Left-sided weakness, syncopal episode History of Present Illness: Ms. Dowling is an 80-year-old female with a past medical history of breast cancer status post mastectomy, thrombocytosis on hydroxyurea, recent right hip replacement approximately 2 weeks ago who presents for acute onset of left-sided weakness. Patient reports that this morning she was up doing laundry at approximately 10 AM and she had a syncopal episode where she fell and hit her head on drywall. Patient reports that she recovered quickly after this episode however a few minutes later she noticed that she had complete numbness of her left arm and leg and was unable to move either of them against gravity. Patient reports she had no confusion or facial numbness or facial droop. She does not believe she had any trouble with her speech at this time. Of note patient has had recurrent syncopal episodes over the past year for which she has undergone extensive evaluation and currently has an outpatient rn navigator which she has yet to send in. Currently she reports her arm feels completely back to normal, however still has heaviness in her left leg. Patient does report a history of alcohol use and is a daily drinker. Her last drink was a bit of Baileys this morning. She denies any history of seizures or withdrawal symptoms. In regards to her syncopal episodes she endorses a prodrome prior to them and noticed they happen when she stands up from sitting or does labor-intensive tasks. She denies any chest pain, shortness of breath associated with these episodes. She has never had any numbness or weakness before with these episodes. In emergency room initial vital signs 135/85, 98, 20, 97.7, 98% on room air. Patient was brought in by ambulance at 2130 and at the time of the ED physicians evaluation had 3-5 strength in of the left upper and lower extremity. CT head was negative for any acute abnormalities, and patient was not administered TPA as she was out of the window. Initial troponin 0 0.010. BUNs/CR 11/0.80. Sodium 134, potassium 3.1. H/H 12.3/36.3. WBC 10.8. Glucose 72. Hospitalist ROS - Review of Systems Constitutional: reports: other (Syncopal episodes). denies: fever, chills, sweats, weakness, malaise Eyes: denies: pain, vision change, conjunctivae inflammation, eyelid inflammation, redness, other ENT: denies: ear pain, ear discharge, nose pain, nose discharge, nose congestion, mouth pain, mouth swelling, throat pain, throat swelling, other Respiratory: denies: cough, dry, shortness of breath, hemoptysis, SOB with excertion, pleuritic pain, sputum, wheezing, other Cardiovascular: denies: chest pain, palpitations, orthopnea, paroxysmal noc. dyspnea, edema, light headedness, other Gastrointestinal: denies: nausea, vomiting, abdominal pain, diarrhea, constipation, melena, hematochezia, other Genitourinary: denies: dysuria, frequency, incontinence, hematuria, retention, other Musculoskeletal: denies: neck pain, shoulder pain, arm pain, back pain, hand pain, leg pain, foot pain, other Skin: denies: rash, lesions, jamilah, bruising, other Neurological: reports: weakness, numbness. denies: incoordination, change in speech, confusion, seizures, other - Medication Medications: Home medications include Hydroxyurea Patient reports to other medications but she is unsure what they are No known drug allergies Hospitalist History - Past Medical History Other Medical History: Past medical history includes Breast cancer status post bilateral mastectomy Thrombocytosis on hydroxyurea which she follows with Dr. Christian for Multiple falls in the past year, with recent right hip replacement Alcohol use - Past Surgical History Other Surgical History: Past surgical history includes Right total hip replacement 2 weeks ago Hysterectomy Bilateral mastectomy Cholecystectomy Appendectomy - Family History Other Family History: Family history significant for son who passed of stomach cancer, and mother who at 35 years for unknown cause. - Social History Smoking Status: Never smoker Alcohol: reports: Heavy (Daily use) Living Situation: Alone Activity level: independent ambulation - Exam General Appearance: NAD, awake alert Eye: PERRL, anicteric sclera ENT: normocephalic atraumatic, no oropharyngeal lesions, moist mucosa Neck: supple, symmetric, no JVD, no thyromegaly, no lymphadenopathy, no carotid bruit Heart: RRR, no gallops, no rubs, normal peripheral pulses, murmur present Respiratory: CTAB, no wheezes, no rales, no ronchi, normal chest expansion, no tachypnea, normal percussion Gastrointestinal: soft, non-tender, non-distended, normal bowel sounds, no palpable masses, no hepatomegaly, no splenomegaly, no bruit Extremities: no cyanosis, no clubbing, no edema Skin: normal turgor, no lesions, no rashes Neurological: cranial nerve grossly intact, normal sensation to touch Neurological - other findings: 5 out of 5 strength to bilateral upper extremities, left lower extremity we Musculoskeletal - other findings: 3 out of 5 strength to left lower extremity Psychiatric: normal affect, normal behavior, A&O x 3 Hospitalist Results - Labs Result Diagrams: 06/10/20 22:03 06/10/20 22:03 Lab results: WBC 10.8 thou/uL (4.8-10.8) 06/10/20 22:03 Hgb 12.3 g/dL (12.0-16.0) 06/10/20 22:03 Hct 36.3 % (36.0-47.0) 06/10/20 22:03 MCV 113.0 fL (78.0-98.0) H 06/10/20 22:03 Plt Count 400 thou/uL (130-400) 06/10/20 22:03 Neutrophils % 77.8 % (42.0-75.0) H 06/10/20 22:03 Sodium 134 mmol/L (136-145) L 06/10/20 22:03 Potassium 3.1 mmol/L (3.5-5.1) L 06/10/20 22:03 Chloride 100 mmol/L (98-107) 06/10/20 22:03 Carbon Dioxide 20 mmol/L (23-31) L 06/10/20 22:03 BUN 11 mg/dL (9.8-20.1) 06/10/20 22:03 Creatinine 0.80 mg/dL (0.6-1.1) 06/10/20 22:03 Glucose 72 mg/dL (83-110) L 06/10/20 22:03 Calcium 9.1 mg/dL (7.8-10.44) 06/10/20 22:03 Total Bilirubin 0.4 mg/dL (0.2-1.2) 06/10/20 22:03 AST 19 U/L (5-34) 06/10/20 22:03 ALT 10 U/L (8-55) 12/30/20 22:03 Alkaline Phosphatase 134 U/L (40-110) H 06/10/20 22:03 Troponin I Less than 0.010 ng/mL (< 0.028) 06/11/20 01:11 Serum Total Protein 7.4 g/dL (6.0-8.3) 06/10/20 22:03 Albumin 4.0 g/dL (3.4-4.8) 06/10/20 22:03 Lipase 13 U/L (8-78) 06/10/20 22:03 Hospitalist H&P A/P - Plan Plan: CVA 80-year-old female with past medical history of thrombocytosis, hypertension, syncopal episodes presents with syncopal episode and acute onset of left sided weakness leg worse than arm. CT brain negative for acute pathology. Patient out of the window for TPA. Continues to have persistent left lower extremity weakness. Her symptoms have improved from initial onset. No history of cardiac arrhythmias, however patient does have a history of recurrent syncopal episodes for which she currently has at home a rn navigator which she has not sent in. Will admit patient for CVA rule out and perform MRI in the morning. Plan MRI Aspirin, statin Telemetry monitoring TSH, magnesium, EtOH level Permissive hypertension Neurology consult Recurrent syncopal episodes Patient with recurrent syncopal episodes over the past year. Patient reports these episodes began in July and happen randomly, although she does note that they are worse when she goes from sitting to standing. Patient appears to have started outpatient work-up for this and has a rn navigator at home which she has not yet sent in. No known history of cardiac arrhythmias. Impressed upon patient importance of sitting in her rn navigator and following up with a red hat engineer, likely as an outpatient. Plan Telemetry monitoring Echocardiogram Plan as above Cardiology follow-up as an outpatient Alcohol use disorder Patient daily alcohol user. She reports she has Baileys every morning. Denies any history of seizures or withdrawal symptoms. Will place patient on ASE protocol as well as check thiamine, vitamin B12, folate, magnesium. Plan ASE protocol Thiamine, B12, folate, magnesium Thrombocytosis History of thrombocytosis on hydroxyurea. Patient has seen Dr. Christian in the past for this, however has not had follow-up in the past few years. We will continue patient on home hydroxyurea and continue to monitor. DVT prophylaxisLovenox DNRpatient has confirmed DNR and would like her nephew to be her power of attorney recruiter. Case discussed with attending physician Dr. Cruz Patel.
[2020-06-11] MEDS ORDERED: hydrALAZINE 20 MG/ML VIAL SLOW IVP PRN (02:15)
[2020-06-11] MEDS ORDERED: Diazepam 5 MG TAB PO PRN (02:28)
[2020-06-11] MEDS ORDERED: Diazepam 5 MG TAB PO SCH (02:30)
[2020-06-11] MEDS ORDERED: Thiamine HCl 200 MG/2 ML VIAL IM SCH (02:30)
[2020-06-11 02:41] VITALS: BMI 26.2
[2020-06-11] MEDS ORDERED: Diazepam 5 MG TAB ONE (02:46)
[2020-06-11 04:26] LABS: Cardiac Risk 3.8 (Less than 4.5)
[2020-06-11 04:31] LABS: Troponin I Less than 0.010 ng/mL (< 0.028)
--- NOTE | 2020-06-11 06:44 | RAD ---
PORTABLE CHEST: DATE: 06/10/2020. PROVIDED CLINICAL HISTORY: Chest pain. FINDINGS: Comparison 07/06/2019. Cardiac and mediastinal silhouette is unchanged in appearance. No focal conso lidation, pleural fluid, or pneumothorax apparent. IMPRESSION: No evidence for an acute cardiopulmonary process. POS: KWADWO
[2020-06-11 06:53] LABS: Bilirubin Negative (Negative); Blood, Urine Negative (Negative); Clarity Clear (Clear); Glucose, Urine (Dipstick) Normal (Negative); Ketone, Urine Negative (Negative); Leukocyte Negative Leu/uL (Negative); Nitrite Negative (Negative); Protein, Urine (Dipstick) Negative (Neg-Trace); Specific Gravity, Urine 1.035 (1.002-1.036); Urobilinogen Normal mg/dL (Less than 2)
[2020-06-11] MEDS ORDERED: Enoxaparin Sodium 40 MG/0.4 ML SYRINGE ONE (08:09)
[2020-06-11] MEDS ORDERED: Folic Acid 1 MG TAB ONE (08:09)
[2020-06-11] MEDS ORDERED: Aspirin Chewable 81 MG TAB ONE (08:09)
[2020-06-11] MEDS: Enoxaparin Sodium 40 MG/0.4 ML SYRINGE SC SCH (08:28)
--- NOTE | 2020-06-11 08:56 | CT ---
PRELIMINARY REPORT/DIRECT RADIOLOGY/EMERGENCY AFTER HOURS PROCEDURE: Receipt of this report by the clinical staff was confirmed with Audra Palmer MD by Hosea trimble on Jun 11, 2020 00:43:00 LABORATORY ASST. Addendum electronically signed by Kelly trimble on June 11, 2020 12:43:55 AM LABORATORY ASST EXAM: CTA head and neck with contrast CLINICAL HISTORY: L sided weakness onset 1130 this morning multiple falls + ETOH Syncope this afterno on No facial droop COMPARISONS: None provided. TECHNIQUE: CTA of the head and neck performed after intravenous administration of 70 mL Isovue-370 io dinated contrast. Multiplanar reconstructions performed. FINDINGS: CTA NECK Aortic arch: Small amount of calcification. Aortic arch branch origins are patent. Right carotid: Nor mal. No stenosis or dissection. Left carotid: Normal. No stenosis or dissection. Vertebral arteries: Cervical vertebral arteries are normal. No stenosis or dissection. CTA HEAD Arterial: Intracranial circulation is normal in course and caliber without flow significant stenosis or occlusion. No aneurysm or vascular malformation. Venous: Intracranial venous structures enhance normally. OTHER Brain: There is again mild periventricular white matter hypoattenuation, likely chronic small vessel ischemic changes. Mild volume loss of the brain with mild lateral and third ventriculomegaly, and mild sulcal/extra-axial CSF space enlargement. Orbits: Postoperative changes from bilateral ctaract r emoval surgery. Paranasal Sinuses: Clear. Mastoid/middle ears: Clear. Lung Apices: Clear. Neck Soft Tissues: Normal. Osseous Structures: Multilevel degenerative changes of the cervical spine. Mild degenerative anteroli sthesis at C4-C5 and C7-T1. No acute osseous abnormality. IMPRESSION: 1. No high-grade stenosis or vascular occlusion of the cervical circulation. 2. No high-grade stenosis or large vessel occlusion of the intracranial circulation. ELECTRONICALLY SIGNED BY: Lm Piper MD Jun 11, 2020 12:39:48 AM LABORATORY ASST FINAL REPORT CT ANGIOGRAM OF THE HEAD AND NECK: DATE: 06/11/2020. COMPARISON: 05/13/2020. HISTORY: Level II stroke alert, left-sided numbness of the arm and leg. FINDINGS: This examination was performed using CT angiogram protocol. Axial CT imaging is obtained from vertex through lung apices with IV contrast including coronal and sagittal 3D reformatted imaging. There is a persistent mass in the posterior medial left parietal region measuring 2.6 cm which abuts and narrows the adjacent superior sagittal sinus. 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 The visualized lung apices demonstrate no acute findings. The retroantral fat and the parapharyngeal fat appears clear bilaterally. The parotid glands and subm andibular glands appear grossly unremarkable. Tonsillar pillars, epiglottis and preepiglottic fat, hyoid bone, thyroid cartilage, cricoid cartilage, and level of the glottis appear unremarkable. The t hyroid gland appears markedly hypoplastic. There is calcified plaque at the origin of the left subclavian artery. Bilateral vertebral artery jose martin gins appear unremarkable. The vertebral arteries are grossly unremarkable bilaterally. There is no hemodynamically significant stenosis on the basis of NASCET criteria involving the common carotid artery or the internal carotid artery on either side. The basilar artery and its branches appear patent. No saccular aneurysm, high-grade stenosis, or vasc ular occlusion is evident involving the posterior circulation. The M1 segment, MCA bifurcation, and distal MCA branches demonstrate no acute findings. The A1 segment on the right is hypoplastic if not aplastic. The left A1 segment, the anterior communi cating artery, and bilateral distal RAUL branches demonstrate no acute findings. There is polypoid soft tissue density in the nasal cavity medially on the left, nonspecific, for whic h direct visualization is advised. The visualized paranasal sinuses and mastoid air cells appear grossly unremarkable. No lymphadenopath y is appreciated within the neck. Review of the osseous structures demonstrates multilevel cervical spine degenerative change with no a cute osseous abnormality noted. IMPRESSION: No hemodynamically significant stenosis on the basis of NASCET criteria involving the arterial struct ures of the neck. No intracranial central arterial thrombosis. Polypoid soft tissue density in the medial aspect of the nasal cavity on the left measuring approxima tely 2.1 cm in craniocaudal dimension. Follow-up direct visualization is advised. Extra-axial lesion near the vertex posteriorly on the left suggests a meningioma. This abuts and narr ows the adjacent superior sagittal sinus which remains patent. This lesion may thus invade the left aspect of the superior sagittal sinus. CODE T Transcribed Date/Time: 06/11/2020 9:35 AM
[2020-06-11] MEDS ORDERED: Aspirin 81 mg Enteric Coated Tablet PO SCH (09:00)
[2020-06-11] MEDS ORDERED: Folic Acid 1 MG TAB PO SCH (09:00)
[2020-06-11] MEDS: Multivitamin W/ Minerals 1 TAB PO SCH (10:16)
[2020-06-11] MEDS: Levothyroxine Sodium 100 MCG TAB PO SCH (10:16)
--- NOTE | 2020-06-11 10:46 | MRI ---
MRI of thebrain without contrast: 06/11/2020 COMPARISON:05/13/2020 HISTORY:Left sided arm and leg numbness TECHNIQUE: Multiplanar multisequence MR imaging of thebrain without contrast Findings:There is an extra-axial lesion measuring 2.4 x 2.2 cm which is FLAIR hyperintense, T1 isoint ense, and T2 isointense within the superior posterior medial left parietal region most consistent with a stable meningioma. Its medial margin exerts mild mass effect on the adjacent superior sagittal sinus. The axial gradient echo imaging demonstrates no evidence for acute hemorrhage. The diffusion weighted imaging demonstrates a punctate focus of restricted diffusion consistent with acute infarction within the periventricular white matter adjacent to the mid body of the right lateral ventricle measuring 4 mm. Foci of periventricular T2 and FLAIR hyperintensity noted, evidence of small vessel disease. There is moderate diffuse cerebral volume loss. Arterial flow voids at the axial level of the skull base appear grossly unremarkable on the T2-weight ed imaging. Regional bone marrow signal intensity appears within normal limits. There is multilevel upper cervica l spine degenerative change. IMPRESSION:Punctate focus of acute infarction within the periventricular white matter adjacent to the right lateral ventricle. Stable meningioma at the vertex posteriorly on the left.
--- NOTE | 2020-06-11 12:42 | CON ---
NEUROLOGY CONSULTATION DATE OF CONSULTATION: 06/11/2020 REASON FOR CONSULTATION: Left-sided weakness/syncopal episode. HISTORY OF PRESENT ILLNESS: Ms. Dowling is an 80-year-old female with medical history significant for breast cancer, status post mastectomy, thrombocytosis on hydroxyurea, recent hip replacement 2 weeks ago, presented with acute onset left-sided weakness. Per patient, she woke up this morning, doing laundry around 10 am and had a syncopal episode. She fell and hit her head on the wall. The patient reports that she recovered quickly, but few minutes later she noticed numbness in her left arm and leg, and unable to move them against gravity. The patient denies confusion, facial numbness, facial droop, nausea, vomiting, headache, chest pain, abdominal pain, recent infection, or recent exposure to COVID. In the emergency room, her vitals were 135/85, pulse 98, respiratory rate 20. Head CT was done, which was negative for acute intracranial abnormalities and she was not administered tPA because she was out of the window and admitted for further evaluation. REVIEW OF SYSTEMS: All systems reviewed and were negative except for the pertinent positives and negatives mentioned in the HPI. HOME MEDICATION: Hydroxyurea. She does not remember other name of the medications. ALLERGIES: NO KNOWN DRUG ALLERGIES. PAST MEDICAL HISTORY: Breast cancer, status post bilateral mastectomy, thrombocytosis, on hydroxyurea, follows Dr. Christian for multiple falls, alcohol use. PAST SURGICAL HISTORY: Right total hip replacement 2 weeks ago, hysterectomy, bilateral mastectomy, cholecystectomy, appendectomy. FAMILY HISTORY: Significant for son who has stomach cancer. SOCIAL HISTORY: The patient lives alone. Patient denies smoking alcohol or illegal drug use Vital Signs & Weight: Weight Weight 157 lb 3.033 oz Additional Labs: Accuchecks 06/11/20 06/11/20 06/10/20 08:25 04:03 23:07 POC Glucose 95 95 100 06/10/20 21:09 POC Glucose 63 L Active Medications Generic Name Dose Route Start Last Admin Trade Name Freq PRN Reason Stop Dose Admin Enoxaparin Sodium 40 mg 06/11/20 09:00 06/11/20 08:28 Enoxaparin Sodium 40 Mg/0.4 Ml Syringe SC 40 mg 0900 GAURI Administration Iron/Minerals/Multivitamins 1 tab 06/11/20 09:00 06/11/20 10:16 Multivitamin W/ Minerals 1 Tab PO 1 tab DAILY GAURI Administration Levothyroxine Sodium 100 mcg 06/11/20 06:00 06/11/20 10:16 Levothyroxine Sodium 100 Mcg Tab PO 100 mcg 0600 GAURI Administration PHYSICAL EXAMINATION: vital signs 135/85, 98, 20, 97.7, 98% on room air. General Appearance: awake alert Neck: no JVD Heart: RRR Respiratory: CTAB Gastrointestinal: soft, normal bowel sounds Extremities: no edema Neurological: Mental status, the patient is alert and oriented to person, place, and time. Recent and remote memory intact. Cranial nerves II through XII intact. Motor, muscle tone and bulk are normal. Moving all 4 extremities equally and symmetrically. Sensory intact. Cerebellar, finger-nose testing intact. Gait, deferred due to patient's safety reasons. DATA REVIEWED: I reviewed the labs, which were significant for mild hyponatremia. Lab results: WBC 10.8 thou/uL (4.8-10.8) 06/10/20 22:03 Hgb 12.3 g/dL (12.0-16.0) 06/10/20 22:03 Hct 36.3 % (36.0-47.0) 06/10/20 22:03 MCV 113.0 fL (78.0-98.0) H 06/10/20 22:03 Plt Count 400 thou/uL (130-400) 06/10/20 22:03 Neutrophils % 77.8 % (42.0-75.0) H 06/10/20 22:03 Sodium 134 mmol/L (136-145) L 06/10/20 22:03 Potassium 3.1 mmol/L (3.5-5.1) L 06/10/20 22:03 Chloride 100 mmol/L (98-107) 06/10/20 22:03 Carbon Dioxide 20 mmol/L (23-31) L 06/10/20 22:03 BUN 11 mg/dL (9.8-20.1) 06/10/20 22:03 Creatinine 0.80 mg/dL (0.6-1.1) 06/10/20 22:03 Glucose 72 mg/dL (83-110) L 06/10/20 22:03 Calcium 9.1 mg/dL (7.8-10.44) 06/10/20 22:03 Total Bilirubin 0.4 mg/dL (0.2-1.2) 06/10/20 22:03 AST 19 U/L (5-34) 06/10/20 22:03 ALT 10 U/L (8-55) 06/10/20 22:03 Alkaline Phosphatase 134 U/L (40-110) H 06/10/20 22:03 Troponin I Less than 0.010 ng/mL (< 0.028) 06/11/20 01:11 Serum Total Protein 7.4 g/dL (6.0-8.3) 06/10/20 22:03 Albumin 4.0 g/dL (3.4-4.8) 06/10/20 22:03 Lipase 13 U/L (8-78) 06/10/20 22:03 ASSESSMENT AND PLAN: (1) CVA (cerebral vascular accident) Code(s): I63.9 - CEREBRAL INFARCTION, UNSPECIFIED Status: Acute Qualifiers: CVA mechanism: unspecified Qualified Code(s): I63.9 - Cerebral infarction, unspecified (2) Hemiplegia affecting left nondominant side Code(s): G81.94 - HEMIPLEGIA, UNSPECIFIED AFFECTING LEFT NONDOMINANT SIDE Status: Resolved Qualifiers: Hemiplegia type: spastic Cerebrovascular disease type: cerebral infarction (3) Thrombocythemia Status: Chronic (4) Hypothyroid Code(s): E03.9 - HYPOTHYROIDISM, UNSPECIFIED Status: Chronic Qualifiers: Hypothyroidism type: unspecified Qualified Code(s): E03.9 - Hypothyroidism, unspecified . Ms. Dowling is an 80-year-old female who was consulted for stroke-like symptoms. MRI of the brain is consistent with acute stroke. Continue aspirin, high-intensity statin for secondary stroke prevention. 2D echo to evaluate for left ventricular ejection fraction. Telemetry to rule out arrhythmias. Check hemoglobin A1c, fasting lipid panel, and TSH, CIWA protocol and thiamine supplementation. Neuro checks every 4 hours. Permissive control of blood pressure at this time. Strict control of blood glucose. EEG to rule out cortical irritability. Strict control of blood glucose. PT/OT/Speech. Deep venous thrombosis prophylaxis. We will continue to follow. Thank you for the consult. Job ID: [id number] MTDD
--- NOTE | 2020-06-11 12:49 | PDOC.HOSPP ---
- Subjective Encounter Date: 06/11/20 Encounter Time: 12:47 Subjective: left sided weakness post syncope has resolved - Objective Vital Signs & Weight: Weight Weight 157 lb 3.033 oz Result Diagrams: 06/10/20 22:03 06/10/20 22:03 Additional Labs: Accuchecks 06/11/20 06/11/20 06/10/20 08:25 04:03 23:07 POC Glucose 95 95 100 06/10/20 21:09 POC Glucose 63 L Hospitalist ROS - Medication Medications: Active Medications Generic Name Dose Route Start Last Admin Trade Name Manohar PRN Reason Stop Dose Admin Enoxaparin Sodium 40 mg 06/11/20 09:00 06/11/20 08:28 Enoxaparin Sodium 40 Mg/0.4 Ml Syringe SC 40 mg 0900 GAURI Administration Iron/Minerals/Multivitamins 1 tab 06/11/20 09:00 06/11/20 10:16 Multivitamin W/ Minerals 1 Tab PO 1 tab DAILY GAURI Administration Levothyroxine Sodium 100 mcg 06/11/20 06:00 06/11/20 10:16 Levothyroxine Sodium 100 Mcg Tab PO 100 mcg 0600 GAURI Administration - Exam General Appearance: awake alert Neck: no JVD Heart: RRR Respiratory: CTAB Gastrointestinal: soft, normal bowel sounds Extremities: no edema Neurological: cranial nerve grossly intact, normal sensation to touch, no weakness, no focal deficits Hosp A/P (1) CVA (cerebral vascular accident) Code(s): I63.9 - CEREBRAL INFARCTION, UNSPECIFIED Status: Acute Qualifiers: CVA mechanism: unspecified Qualified Code(s): I63.9 - Cerebral infarction, unspecified (2) Hemiplegia affecting left nondominant side Code(s): G81.94 - HEMIPLEGIA, UNSPECIFIED AFFECTING LEFT NONDOMINANT SIDE Status: Resolved Qualifiers: Hemiplegia type: spastic Cerebrovascular disease type: cerebral infarction (3) Thrombocythemia Status: Chronic (4) Hypothyroid Code(s): E03.9 - HYPOTHYROIDISM, UNSPECIFIED Status: Chronic Qualifiers: Hypothyroidism type: unspecified Qualified Code(s): E03.9 - Hypothyroidism, unspecified - Plan CVA: poss MRI, full dose ASA, statin syncope; consider seizure disorder. prolactin level, neuro consult, EEG cont hydroxyurea for thrombocythemia
[2020-06-11] MEDS: Atorvastatin Calcium 40 MG TAB PO SCH (21:46)
[2020-06-12] MEDS ORDERED: Diazepam 5 MG TAB PO PRN (04:00)
[2020-06-12] MEDS: Levothyroxine Sodium 100 MCG TAB PO SCH (05:39)
[2020-06-12] MEDS ORDERED: traMADol HCl 50 MG TAB PO PRN (07:18)
[2020-06-12] MEDS ORDERED: ALPRAZolam 0.25 MG TAB PO PRN (07:18)
[2020-06-12] MEDS ORDERED: Non-Formulary Item 1 EACH (Levothyroxine Sodium [Levothyroxine] 100 MCG Capsule) PO SCH (09:00)
[2020-06-12] MEDS: Magnesium Oxide 400 MG TAB PO SCH (10:15)
[2020-06-12] MEDS: Enoxaparin Sodium 40 MG/0.4 ML SYRINGE SC SCH (10:15)
[2020-06-12] MEDS: Aspirin 325 mg Enteric Coated Tablet PO SCH (10:15)
[2020-06-12] MEDS: Potassium Chloride 20 MEQ TAB PO SCH ×2 (10:15→21:28)
[2020-06-12] MEDS: Hydroxyurea 500 MG CAP PO SCH (10:16)
[2020-06-12] MEDS: Multivitamin W/ Minerals 1 TAB PO SCH (10:16)
[2020-06-12] MEDS: Thiamine 100 MG TAB PO SCH (10:16)
[2020-06-12] MEDS: Folic Acid 1 MG TAB PO SCH (10:16)
[2020-06-12] MEDS: Triamterene/Hydrochlorothiazide 37.5 mg/25 mg Tablet PO SCH (10:17)
[2020-06-12] MEDS: Midodrine HCl 5 MG TAB PO SCH ×3 (10:29→21:29)
--- NOTE | 2020-06-12 10:41 | PDOC.EEG ---
Neurology EEG Report - Report Report: This EEG was performed using 24 channel Proxino video EEG machine with 24 disc electrodes. This was an extended 2 hours 5 minutes of inpatient video EEG recording. Digital analysis of the EEG was done for spike and seizure detection which revealed no abnormalities. Background: The posterior background rhythm is 8.5-9 Hz. The posterior background rhythm attenuates with eye opening and enhances with eye closure. Hyperventilation: Not performed. Photic Stimulation: No significant response. Sleep: Drowsiness is observed. EEG Diagnosis: Normal awake and drowsy EEG.
--- NOTE | 2020-06-12 14:13 | PDOC.NEUPN ---
- Subjective Encounter Date: 06/12/20 Subjective: Mrs. Dowling feels better and denies any new complaints. - Objective Vital Signs & Weight: Vital Signs (12 hours) Temp Pulse Resp BP Pulse Ox 06/12/20 12:00 98.2 F 112 H 16 97 06/12/20 08:05 94 L 06/12/20 07:49 97.9 F 86 16 124/69 94 L 06/12/20 04:00 98.7 F 94 20 134/64 95 Weight Weight 157 lb 3.033 oz I&O: 06/11/20 06/12/20 06/13/20 06:59 06:59 06:59 Intake Total 870 800 Balance 870 800 Result Diagrams: 06/10/20 22:03 06/10/20 22:03 Additional Labs: Accuchecks 06/12/20 06/12/20 06/11/20 10:45 04:48 16:53 POC Glucose 118 H 102 H 68 L Radiology Reviewed by me: Yes EKG Reviewed by me: Yes ROS - Review of Systems Constitutional: denies: fever, chills, sweats, weakness, malaise, other Eyes: denies: pain, vision change, conjunctivae inflammation, eyelid inflammation, redness, other ENT: denies: ear pain, ear discharge, nose pain, nose discharge, nose congestion, mouth pain, mouth swelling, throat pain, throat swelling, other Respiratory: denies: cough, dry, shortness of breath, hemoptysis, SOB with excertion, pleuritic pain, sputum, wheezing, other Gastrointestinal: denies: nausea, vomiting, abdominal pain, diarrhea, constipation, melena, hematochezia, other Genitourinary: denies: dysuria, frequency, incontinence, hematuria, retention, other Musculoskeletal: denies: neck pain, shoulder pain, arm pain, back pain, hand pain, leg pain, foot pain, other All Systems: All other systems reviewed; all pertinent +/- noted in HPI/Subj - Medication Medications: Active Medications Generic Name Dose Route Start Last Admin Trade Name Freq PRN Reason Stop Dose Admin Aspirin 325 mg 06/12/20 09:00 06/12/20 10:15 Aspirin 325 Mg Enteric Coated Tablet PO 325 mg DAILY GAURI Administration Atorvastatin Calcium 40 mg 06/11/20 21:00 06/11/20 21:46 Atorvastatin Calcium 40 Mg Tab PO 40 mg HS GAURI Administration Enoxaparin Sodium 40 mg 06/11/20 09:00 06/12/20 10:15 Enoxaparin Sodium 40 Mg/0.4 Ml Syringe SC 40 mg 0900 GAURI Administration Folic Acid 1 mg 06/12/20 09:00 06/12/20 10:16 Folic Acid 1 Mg Tab PO 1 mg DAILY GAURI Administration Hydroxyurea 1,000 mg 06/12/20 09:00 06/12/20 10:16 Hydroxyurea 500 Mg Cap PO 1,000 mg DAILY GAURI Administration Iron/Minerals/Multivitamins 1 tab 06/11/20 09:00 06/12/20 10:16 Multivitamin W/ Minerals 1 Tab PO 1 tab DAILY GAURI Administration Magnesium Oxide 400 mg 06/12/20 09:00 06/12/20 10:15 Magnesium Oxide 400 Mg Tab PO 400 mg DAILY GAURI Administration Midodrine 5 mg 06/12/20 09:00 06/12/20 10:29 Midodrine Hcl 5 Mg Tab PO 5 mg TID GAURI Administration Potassium Chloride 20 meq 06/12/20 09:00 06/12/20 10:15 Potassium Chloride 20 Meq Tab PO 20 meq BID GAURI Administration Thiamine HCl 100 mg 06/12/20 09:00 06/12/20 10:16 Thiamine 100 Mg Tab PO 100 mg DAILY GAURI Administration Triamterene/Hydrochlorothiazide 1 tab 06/12/20 09:00 06/12/20 10:17 Triamterene/Hydrochlorothiazide 37.5 Mg/25 Mg Tablet PO 1 tab DAILY GAURI Administration - Exam General Appearance: awake alert Eye: PERRL ENT: normocephalic atraumatic Neck: supple Respiratory: CTAB Cardiovascular: RRR Gastrointestinal: soft Extremities: no cyanosis Skin: normal turgor Neurological: CN's grossly intact Musculoskeletal: normal tone, no muscle wasting PSYCH: normal affect, normal behavior, A&O x 3, oriented to person, oriented to place, oriented to time Results - Labs Result Diagrams: 06/10/20 22:03 06/10/20 22:03 Lab results: WBC 10.8 thou/uL (4.8-10.8) 06/10/20 22:03 Hgb 12.3 g/dL (12.0-16.0) 06/10/20 22:03 Hct 36.3 % (36.0-47.0) 06/10/20 22:03 MCV 113.0 fL (78.0-98.0) H 06/10/20 22:03 Plt Count 400 thou/uL (130-400) 06/10/20 22:03 Neutrophils % 77.8 % (42.0-75.0) H 06/10/20 22:03 Sodium 134 mmol/L (136-145) L 06/10/20 22:03 Potassium 3.1 mmol/L (3.5-5.1) L 06/10/20 22:03 Chloride 100 mmol/L (98-107) 06/10/20 22:03 Carbon Dioxide 20 mmol/L (23-31) L 06/10/20 22:03 BUN 11 mg/dL (9.8-20.1) 06/10/20 22:03 Creatinine 0.80 mg/dL (0.6-1.1) 06/10/20 22:03 Glucose 72 mg/dL (83-110) L 06/10/20 22:03 Calcium 9.1 mg/dL (7.8-10.44) 06/10/20 22:03 Total Bilirubin 0.4 mg/dL (0.2-1.2) 06/10/20 22:03 AST 19 U/L (5-34) 06/10/20 22:03 ALT 10 U/L (8-55) 06/10/20 22:03 Alkaline Phosphatase 134 U/L (40-110) H 06/10/20 22:03 Troponin I Less than 0.010 ng/mL (< 0.028) 06/11/20 04:03 Serum Total Protein 7.4 g/dL (6.0-8.3) 06/10/20 22:03 Albumin 4.0 g/dL (3.4-4.8) 06/10/20 22:03 Lipase 13 U/L (8-78) 06/10/20 22:03 Urine Ketones Negative mg/dL (Negative) 06/11/20 06:34 Urine Blood Negative (Negative) 06/11/20 06:34 Urine Nitrite Negative (Negative) 06/11/20 06:34 Ur Leukocyte Esterase Negative Eladia/uL (Negative) 06/11/20 06:34 - Radiology Interpretation MRI - head Additional Comment: MRI of the brain reviewed which was consistent with acute lacunar infarction PN A/P (1) CVA (cerebral vascular accident) Code(s): I63.9 - CEREBRAL INFARCTION, UNSPECIFIED Status: Acute Qualifiers: CVA mechanism: unspecified Qualified Code(s): I63.9 - Cerebral infarction, unspecified (2) Hypothyroid Code(s): E03.9 - HYPOTHYROIDISM, UNSPECIFIED Status: Chronic Qualifiers: Hypothyroidism type: unspecified Qualified Code(s): E03.9 - Hypothyroidism, unspecified (3) Thrombocythemia Status: Chronic (4) Hemiplegia affecting left nondominant side Code(s): G81.94 - HEMIPLEGIA, UNSPECIFIED AFFECTING LEFT NONDOMINANT SIDE Status: Resolved Qualifiers: Hemiplegia type: spastic Cerebrovascular disease type: cerebral infarction (5) Encephalopathy Code(s): G93.40 - ENCEPHALOPATHY, UNSPECIFIED Status: Acute (6) Macrocytic anemia Code(s): D53.9 - NUTRITIONAL ANEMIA, UNSPECIFIED Status: Acute (7) Meningioma Code(s): D32.9 - BENIGN NEOPLASM OF MENINGES, UNSPECIFIED Status: Acute (8) UTI (urinary tract infection) Status: Acute - Plan Daily Plan: PT/OT, speech therapy, DVT proph w/SCDs Mrs. Dowling is a 80-year-old female who presented with left-sided paresthesias which have improved since admission. MRI of the brain reviewed which was consistent with acute infarction. MRI of the brain reviewed which was consistent with acute lacunar infarction in the white matter adjacent to the right lateral ventricle. CTA of the head and neck did not reveal hemodynamically significant stenosis. EEG reviewed which was negative for seizure activity. Continue telemetry to rule out arrhythmias. 2D echo to evaluate for left ventricular ejection fraction. Neurochecks every 4 hours. Permissive control of blood pressure at this time. Strict control of blood glucose. Continue aspirin and high intensity statin for secondary stroke prevention. Continue home medications. PT/OT/speech. DVT prophylaxis. Continue medical management per primary team. Plan discussed in detail with the patient and also with the nursing staff.
[2020-06-12 17:17] LABS: Hemoglobin A1c 4.9 % (4.0-6.0)
[2020-06-12] MEDS: Atorvastatin Calcium 40 MG TAB PO SCH (21:29)
[2020-06-13] MEDS ORDERED: Melatonin 3 MG TAB PO PRN (00:18)
[2020-06-13] MEDS ORDERED: Levothyroxine Sodium 100 MCG TAB PO SCH (06:00)
[2020-06-13] MEDS: Midodrine HCl 5 MG TAB PO SCH ×2 (09:37→15:32)
[2020-06-13] MEDS: Folic Acid 1 MG TAB PO SCH (09:37)
[2020-06-13] MEDS: Hydroxyurea 500 MG CAP PO SCH (09:37)
[2020-06-13] MEDS: Multivitamin W/ Minerals 1 TAB PO SCH (09:37)
[2020-06-13] MEDS: Potassium Chloride 20 MEQ TAB PO SCH (09:37)
[2020-06-13] MEDS: Triamterene/Hydrochlorothiazide 37.5 mg/25 mg Tablet PO SCH (09:38)
[2020-06-13] MEDS: Thiamine 100 MG TAB PO SCH (09:38)
[2020-06-13] MEDS: Magnesium Oxide 400 MG TAB PO SCH (09:38)
[2020-06-13] MEDS: Aspirin 325 mg Enteric Coated Tablet PO SCH (09:38)
[2020-06-13] MEDS: Enoxaparin Sodium 40 MG/0.4 ML SYRINGE SC SCH (09:38)
[2020-06-13 09:42] LABS: Anion Gap 17 mmol/L (10-20); BUN (Urea Nitrogen) 6 mg/dL (9.8-20.1); Calc. Creatinine Clearance 62 mL/min (70-130); Calcium 8.7 mg/dL (7.8-10.44); Carbon Dioxide 20 mmol/L (23-31); Chloride 100 mmol/L (98-107); Glucose 130 mg/dL (83-110); Potassium 3.8 mmol/L (3.5-5.1); Sodium 133 mmol/L (136-145)
[2020-06-13 11:08] VITALS: TEMP 98
[2020-06-13 11:26] VITALS: BP 126/60
--- NOTE | 2020-06-13 11:50 | EKG ---
Test Reason : Blood Pressure : / mmHG Vent. Rate : 087 BPM Atrial Rate : 087 BPM P-R Int : 156 ms QRS Dur : 120 ms QT Int : 412 ms P-R-T Axes : 081 -10 028 degrees QTc Int : 495 ms Normal sinus rhythm Right bundle branch block Abnormal ECG Confirmed by ELMER PETERS M.D. ([id number]), visual effects editor KATHI CHO ([id number]) on 06/13/2020 11:50:02 AM Referred By: Confirmed By:ELMER PETERS M.D.
--- NOTE | 2020-06-13 15:13 | PDOC.NEUPN ---
- Subjective Encounter Date: 06/13/20 Subjective: Ms. Dowling denies any new complaint the last 24 hours. - Objective Vital Signs & Weight: Vital Signs (12 hours) Temp Pulse Pulse Resp BP BP Pulse Ox 06/13/20 11:06 98.0 F 84 16 148/70 H 98 06/13/20 09:10 69 126/60 06/13/20 08:33 95 128/75 06/13/20 08:00 97.4 F L 81 18 136/75 99 06/13/20 04:00 97.6 F 80 20 135/67 99 Weight Weight 157 lb 3.033 oz I&O: 06/12/20 06/13/20 06/14/20 06:59 06:59 06:59 Intake Total 870 2320 Balance 870 2320 Result Diagrams: 06/10/20 22:03 06/13/20 09:07 Additional Labs: Accuchecks 06/13/20 06/13/20 06/12/20 11:10 05:39 20:57 POC Glucose 92 88 88 06/12/20 16:53 POC Glucose 87 Radiology Reviewed by me: Yes EKG Reviewed by me: Yes ROS - Review of Systems Constitutional: denies: fever, chills, sweats, weakness, malaise, other Eyes: denies: pain, vision change, conjunctivae inflammation, eyelid inflammation, redness, other ENT: denies: ear pain, ear discharge, nose pain, nose discharge, nose congestion, mouth pain, mouth swelling, throat pain, throat swelling, other Respiratory: denies: cough, dry, shortness of breath, hemoptysis, SOB with excertion, pleuritic pain, sputum, wheezing, other Musculoskeletal: denies: neck pain, shoulder pain, arm pain, back pain, hand pain, leg pain, foot pain, other Skin: denies: rash, lesions, jamilah, bruising, other Neurological: denies: weakness, numbness, incoordination, change in speech, confusion, seizures, other - Medication Medications: Active Medications Generic Name Dose Route Start Last Admin Trade Name Freq PRN Reason Stop Dose Admin Aspirin 325 mg 06/12/20 09:00 06/13/20 09:38 Aspirin 325 Mg Enteric Coated Tablet PO 325 mg DAILY GAURI Administration Atorvastatin Calcium 40 mg 06/11/20 21:00 06/12/20 21:29 Atorvastatin Calcium 40 Mg Tab PO 40 mg HS GAURI Administration Enoxaparin Sodium 40 mg 06/11/20 09:00 06/13/20 09:38 Enoxaparin Sodium 40 Mg/0.4 Ml Syringe SC 40 mg 0900 GAURI Administration Folic Acid 1 mg 06/12/20 09:00 06/13/20 09:37 Folic Acid 1 Mg Tab PO 1 mg DAILY GAURI Administration Hydroxyurea 1,000 mg 06/12/20 09:00 06/13/20 09:37 Hydroxyurea 500 Mg Cap PO 1,000 mg DAILY GAURI Administration Iron/Minerals/Multivitamins 1 tab 06/11/20 09:00 06/13/20 09:37 Multivitamin W/ Minerals 1 Tab PO 1 tab DAILY GAURI Administration Levothyroxine Sodium 100 mcg 06/13/20 06:00 06/13/20 07:33 Levothyroxine Sodium 100 Mcg Tab PO 100 mcg 0600 GAURI Administration Magnesium Oxide 400 mg 06/12/20 09:00 06/13/20 09:38 Magnesium Oxide 400 Mg Tab PO 400 mg DAILY GAURI Administration Midodrine 5 mg 06/12/20 09:00 06/13/20 09:37 Midodrine Hcl 5 Mg Tab PO 5 mg TID GAURI Administration Potassium Chloride 20 meq 06/12/20 09:00 06/13/20 09:37 Potassium Chloride 20 Meq Tab PO 20 meq BID GAURI Administration Sodium Chloride 10 ml 06/11/20 02:15 06/13/20 09:38 Flush - Normal Saline 10 Ml Syringe IVF 10 ml PRN PRN Administration Saline Flush Thiamine HCl 100 mg 06/12/20 09:00 06/13/20 09:38 Thiamine 100 Mg Tab PO 100 mg DAILY GAURI Administration Tramadol HCl 50 mg 06/12/20 07:18 06/12/20 14:56 Tramadol Hcl 50 Mg Tab PO 50 mg BID PRN Administration Pain Triamterene/Hydrochlorothiazide 1 tab 06/12/20 09:00 06/13/20 09:38 Triamterene/Hydrochlorothiazide 37.5 Mg/25 Mg Tablet PO 1 tab DAILY GAURI Administration - Exam General Appearance: awake alert Eye: PERRL ENT: normocephalic atraumatic Neck: supple Respiratory: CTAB Cardiovascular: RRR Gastrointestinal: soft Extremities: no cyanosis Skin: normal turgor Neurological: CN's grossly intact Musculoskeletal: normal tone, normal strength, no muscle wasting PSYCH: normal affect, normal behavior, A&O x 3 Results - Labs Result Diagrams: 06/10/20 22:03 06/13/20 09:07 Lab results: WBC 10.8 thou/uL (4.8-10.8) 06/10/20 22:03 Hgb 12.3 g/dL (12.0-16.0) 06/10/20 22:03 Hct 36.3 % (36.0-47.0) 06/10/20 22:03 MCV 113.0 fL (78.0-98.0) H 06/10/20 22:03 Plt Count 400 thou/uL (130-400) 06/10/20 22:03 Neutrophils % 77.8 % (42.0-75.0) H 06/10/20 22:03 Sodium 133 mmol/L (136-145) L 06/13/20 09:07 Potassium 3.8 mmol/L (3.5-5.1) 06/13/20 09:07 Chloride 100 mmol/L (98-107) 06/13/20 09:07 Carbon Dioxide 20 mmol/L (23-31) L 06/13/20 09:07 BUN 6 mg/dL (9.8-20.1) L 06/13/20 09:07 Creatinine 0.82 mg/dL (0.6-1.1) 06/13/20 09:07 Glucose 130 mg/dL (83-110) H 06/13/20 09:07 Calcium 8.7 mg/dL (7.8-10.44) 06/13/20 09:07 Total Bilirubin 0.4 mg/dL (0.2-1.2) 06/10/20 22:03 AST 19 U/L (5-34) 06/10/20 22:03 ALT 10 U/L (8-55) 06/10/20 22:03 Alkaline Phosphatase 134 U/L (40-110) H 06/10/20 22:03 Troponin I Less than 0.010 ng/mL (< 0.028) 06/11/20 04:03 Serum Total Protein 7.4 g/dL (6.0-8.3) 06/10/20 22:03 Albumin 4.0 g/dL (3.4-4.8) 06/10/20 22:03 Lipase 13 U/L (8-78) 06/10/20 22:03 Urine Ketones Negative mg/dL (Negative) 06/11/20 06:34 Urine Blood Negative (Negative) 06/11/20 06:34 Urine Nitrite Negative (Negative) 06/11/20 06:34 Ur Leukocyte Esterase Negative Eladia/uL (Negative) 06/11/20 06:34 - Radiology Interpretation MRI - head Additional Comment: MRI of the head was consistent with tiny acute infarction PN A/P (1) CVA (cerebral vascular accident) Code(s): I63.9 - CEREBRAL INFARCTION, UNSPECIFIED Status: Acute Qualifiers: CVA mechanism: unspecified Qualified Code(s): I63.9 - Cerebral infarction, unspecified (2) Hypothyroid Code(s): E03.9 - HYPOTHYROIDISM, UNSPECIFIED Status: Chronic Qualifiers: Hypothyroidism type: unspecified Qualified Code(s): E03.9 - Hypothyroidism, unspecified (3) Thrombocythemia Status: Chronic (4) Hemiplegia affecting left nondominant side Code(s): G81.94 - HEMIPLEGIA, UNSPECIFIED AFFECTING LEFT NONDOMINANT SIDE Status: Resolved Qualifiers: Hemiplegia type: spastic Cerebrovascular disease type: cerebral infarction (5) Encephalopathy Code(s): G93.40 - ENCEPHALOPATHY, UNSPECIFIED Status: Acute (6) Macrocytic anemia Code(s): D53.9 - NUTRITIONAL ANEMIA, UNSPECIFIED Status: Acute (7) Meningioma Code(s): D32.9 - BENIGN NEOPLASM OF MENINGES, UNSPECIFIED Status: Acute (8) UTI (urinary tract infection) Status: Acute - Plan Daily Plan: speech therapy, out of bed/ambulate Mrs. Dowling is a 80-year-old female who presented with left-sided paresthesias which have improved since admission. MRI of the brain reviewed which was consistent with acute infarction. MRI of the brain reviewed which was consistent with acute lacunar infarction in the white matter adjacent to the right lateral ventricle. CTA of the head and neck did not reveal hemodynamically significant stenosis. EEG reviewed which was negative for seizure activity. Continue telemetry to rule out arrhythmias. 2D echo showed left ventricular ejection fraction 55 to 60%. No thrombus or PFO. Neurochecks every 4 hours. Monitor blood pressure at this time. Strict control of blood glucose. Continue aspirin and high intensity statin for secondary stroke prevention. Continue home medications. PT/OT/speech. Continue medical management per primary team. Plan discussed in detail with the patient and also with the nursing staff.
--- NOTE | 2020-06-13 15:20 | PDOC.DS.DS ---
Provider - Provider Date of Admission: 06/11/20 00:14 Date of Discharge: 06/13/20 Admitting Provider: Gucci Parker Consultations: Neurology Primary Care Physician: Seamus Alexander MD Course - Hospital Course Hospital Course: This patient is an 80-year-old female who presented via the emergency department with some left-sided paresthesias and weakness. Subsequent to presentation she had progressive improvement to complete resolution of her symptoms. Initial CT was negative however subsequent MRI did reveal a tiny acute infarction. This was a punctate focus within the periventricular white matter adjacent to the right lateral ventricle. CT angio revealed no significant occlusive disease. She was seen in consultation by neurology. EEG was performed and was negative. Echocardiogram revealed an ejection fraction of 55 to 60% with evidence of diastolic dysfunction but otherwise unremarkable. Telemetry remained normal sinus rhythm. Patient was seen by physical therapy and was able to ambulate adequately. She was felt to be stable for discharge to home with home health and home PT. - Labs Lab Results: 06/10/20 22:03 06/13/20 09:07 Abnormal Lab Results - Last 48 hrs 06/13/20 09:07: Sodium 133 L, Carbon Dioxide 20 L, BUN 6 L - Physical Exam Vitals: Vital Signs (12 hours) Temp Pulse Pulse Resp BP BP Pulse Ox 06/13/20 11:06 98.0 F 84 16 148/70 H 98 06/13/20 09:10 69 126/60 06/13/20 08:33 95 128/75 06/13/20 08:00 97.4 F L 81 18 136/75 99 06/13/20 04:00 97.6 F 80 20 135/67 99 Weight Weight 157 lb 3.033 oz Physical Exam: The patient was seen and examined on the day of discharge. Problem - Problem (1) CVA (cerebral vascular accident) Code(s): I63.9 - CEREBRAL INFARCTION, UNSPECIFIED Status: Acute Qualifiers: CVA mechanism: unspecified Qualified Code(s): I63.9 - Cerebral infarction, unspecified (2) Hypothyroid Code(s): E03.9 - HYPOTHYROIDISM, UNSPECIFIED Status: Chronic Qualifiers: Hypothyroidism type: unspecified Qualified Code(s): E03.9 - Hypothyroidism, unspecified (3) Thrombocythemia Status: Chronic (4) Hemiplegia affecting left nondominant side Code(s): G81.94 - HEMIPLEGIA, UNSPECIFIED AFFECTING LEFT NONDOMINANT SIDE Status: Resolved Qualifiers: Hemiplegia type: spastic Cerebrovascular disease type: cerebral infarction (5) Macrocytic anemia Code(s): D53.9 - NUTRITIONAL ANEMIA, UNSPECIFIED Status: Acute - Time spent with Patient (mins): 31 Plan - Discharge Medications Prescriptions: Aspirin [Aspirin EC] 325 mg PO DAILY #30 tablet. Atorvastatin Calcium [Lipitor] 40 mg PO HS #30 tab Home Medications: Medication Instructions Recorded Confirmed Type ALPRAZolam [Xanax] 0.25 mg PO QID PRN 07/07/19 06/11/20 History Hydroxyurea [Hydrea] 1,000 mg PO DAILY 07/07/19 06/11/20 History Potassium Chloride 20 meq PO BID 07/07/19 06/11/20 History Triamterene/Hydrochlorothiazid 1 tablet PO DAILY 07/07/19 06/11/20 History [Triamterene-Hctz 37.5-25 mg Tb] Folic Acid [Folvite] 1 mg PO DAILY #30 tab 07/09/19 06/11/20 Rx Levothyroxine Sodium 100 mcg PO DAILY 06/11/20 06/11/20 History [Levothyroxine] Midodrine HCl [ProAmatine] 5 mg PO TID 06/11/20 06/11/20 History traMADol HCl [Tramadol HCl] 50 mg PO BID PRN 06/11/20 06/11/20 History Aspirin [Aspirin EC] 325 mg PO DAILY #30 tablet. 06/13/20 Rx Atorvastatin Calcium [Lipitor] 40 mg PO HS #30 tab 06/13/20 Rx Multivitamin W/ Minerals 1 tab PO DAILY tab 06/13/20 Rx [Theragran M] Thiamine 100 mg PO DAILY tab 06/13/20 Rx Allergies: No Known Drug Allergies Allergy (Verified 07/06/19 20:52) Per patient - Discharge Instructions Discharge Instructions:: Home health referrals to [facility]. Activity:: Activity as Tolerated Nourishment:: Heart Healthy Diet - Follow up Plan Referrals: Seamus Alexander MD [Primary Care Provider] - 7 Days Disposition: HOME HEALTH Quality - Care Measures CORE MEASURES:: Stroke/TIA - Stroke/TIA Did you prescribe antithrombotic therapy?: Yes Did you prescribe anticoagulant for A Fib/Flutter?: No Specify reason for no DC anticoagulant: Treatment not indicated Did you prescribe a statin medication?: Yes
--- NOTE | 2020-06-15 04:37 | PQF ---
CLINICAL DOCUMENTATION CLARIFICATION FORM: Dear : Seamus Mathis Date / Time:06/15/20 Please exercise your independent, professional judgment in responding to the clarification form. Clinical indicators are provided on the bottom of this form for your review Please check appropriate box(es): [ x ] Encephalopathy: Etiology: [ ] Metabolic [ ] Toxic [ x ] CVA [ ] Unspecified [ ] Other (please specify) [ ] Other diagnosis, please specify [ ] Unable to determine Physician Signature: Date/Time: For continuity of documentation, please document condition throughout progress notes and discharge summary. Thank You. To be completed by CDI/Coding staff for physician review: Present Clinical Indicators - Signs / Symptoms / Labs Results and Location in Medical Record [x] Acute encephalopathy PN 06/13 [x] Patient reports she had no confusion HP 06/10 [x] weakness and numbness HP 06/10 [x] MRI of brain: Punctate focus of acute infarction MRI of brain 05/13 Present Risk Factors Results and Location in Medical Record [x] 80 years old female DS 06/13 [x] CVA DS 06/13 [x] Hypothyroidism DS 06/13 [x] Macrocytic anemia DS 06/13 [x] UTI PN 06/13 [x] Alcohol abuse ED Notes 06/10 Present Treatments Results and Location in Medical Record [x] Neurocheck every 4 hrs PN 06/13 [x] Neurology Consult Consult 06/11 [x] Aspirin 325mg Oral AUG 21 [x] Lovenox 40mg Subcu AUG 21 [employer] Signature: Steve Pedraza Phone #: [phone] Date/Time: 06/15/20 This is a permanent part of the Medical Record [facility]
--- NOTE | 2020-06-17 10:35 | CT ---
"PRELIMINARY REPORT" PRELIMINARY REPORT/DIRECT RADIOLOGY/EMERGENCY AFTER HOURS PROCEDURE: Receipt of this report by the clinical staff was confirmed with Audra Palmer MD by Hosea trimble on Jun 11, 2020 00:43:00 COMMUNITY PHARMACIST. Addendum electronically signed by Kelly trimble on June 11, 2020 12:43:55 AM COMMUNITY PHARMACIST EXAM: CTA head and neck with contrast CLINICAL HISTORY: L sided weakness onset 1130 this morning multiple falls + ETOH Syncope this afterno on No facial droop COMPARISONS: None provided. TECHNIQUE: CTA of the head and neck performed after intravenous administration of 70 mL Isovue-370 io dinated contrast. Multiplanar reconstructions performed. FINDINGS: CTA NECK Aortic arch: Small amount of calcification. Aortic arch branch origins are patent. Right carotid: Nor mal. No stenosis or dissection. Left carotid: Normal. No stenosis or dissection. Vertebral arteries: Cervical vertebral arteries are normal. No stenosis or dissection. CTA HEAD Arterial: Intracranial circulation is normal in course and caliber without flow significant stenosis or occlusion. No aneurysm or vascular malformation. Venous: Intracranial venous structures enhance normally. OTHER Brain: There is again mild periventricular white matter hypoattenuation, likely chronic small vessel ischemic changes. Mild volume loss of the brain with mild lateral and third ventriculomegaly, and mild sulcal/extra-axial CSF space enlargement. Orbits: Postoperative changes from bilateral ctaract r emoval surgery. Paranasal Sinuses: Clear. Mastoid/middle ears: Clear. Lung Apices: Clear. Neck Soft Tissues: Normal. Osseous Structures: Multilevel degenerative changes of the cervical spine. Mild degenerative anteroli sthesis at C4-C5 and C7-T1. No acute osseous abnormality. IMPRESSION: 1. No high-grade stenosis or vascular occlusion of the cervical circulation. 2. No high-grade stenosis or large vessel occlusion of the intracranial circulation. ELECTRONICALLY SIGNED BY: Lm Piper MD Jun 11, 2020 12:39:48 AM COMMUNITY PHARMACIST FINAL REPORT CT ANGIOGRAM OF THE HEAD AND NECK: DATE: 06/11/2020. COMPARISON: 05/13/2020. HISTORY: Level II stroke alert, left-sided numbness of the arm and leg. FINDINGS: This examination was performed using CT angiogram protocol. Axial CT imaging is obtained from vertex through lung apices with IV contrast including coronal and sagittal 3D reformatted imaging. There is a persistent mass in the posterior medial left parietal region measuring 2.6 cm which abuts and narrows the adjacent superior sagittal sinus. 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 The visualized lung apices demonstrate no acute findings. The retroantral fat and the parapharyngeal fat appears clear bilaterally. The parotid glands and subm andibular glands appear grossly unremarkable. Tonsillar pillars, epiglottis and preepiglottic fat, hyoid bone, thyroid cartilage, cricoid cartilage, and level of the glottis appear unremarkable. The t hyroid gland appears markedly hypoplastic. There is calcified plaque at the origin of the left subclavian artery. Bilateral vertebral artery jose martin gins appear unremarkable. The vertebral arteries are grossly unremarkable bilaterally. There is no hemodynamically significant stenosis on the basis of NASCET criteria involving the common carotid artery or the internal carotid artery on either side. The basilar artery and its branches appear patent. No saccular aneurysm, high-grade stenosis, or vasc ular occlusion is evident involving the posterior circulation. The M1 segment, MCA bifurcation, and distal MCA branches demonstrate no acute findings. The A1 segment on the right is hypoplastic if not aplastic. The left A1 segment, the anterior communi cating artery, and bilateral distal RAUL branches demonstrate no acute findings. There is polypoid soft tissue density in the nasal cavity medially on the left, nonspecific, for whic h direct visualization is advised. The visualized paranasal sinuses and mastoid air cells appear grossly unremarkable. No lymphadenopath y is appreciated within the neck. Review of the osseous structures demonstrates multilevel cervical spine degenerative change with no a cute osseous abnormality noted. IMPRESSION: No hemodynamically significant stenosis on the basis of NASCET criteria involving the arterial struct ures of the neck. No intracranial central arterial thrombosis. Polypoid soft tissue density in the medial aspect of the nasal cavity on the left measuring approxima tely 2.1 cm in craniocaudal dimension. Follow-up direct visualization is advised. Extra-axial lesion near the vertex posteriorly on the left suggests a meningioma. This abuts and narr ows the adjacent superior sagittal sinus which remains patent. This lesion may thus invade the left aspect of the superior sagittal sinus. CODE T Transcribed Date/Time: 06/17/2020 10:35 AM
== END 2020-06-13 16:41 | disposition home health service (06) | DRG 65 ==
LOC: ERS 21:05 → ERHOLD 06-11 00:14 → 2SE 06-11 13:38
PROVIDERS: ADMIT Internal Medicine; ATTEND Internal Medicine
DX: I63.9 Cerebral infarction, unspecified (principal); F10.19 Alcohol abuse with unspecified alcohol-induced disorder; G93.40 Encephalopathy, unspecified; N39.0 Urinary tract infection, site not specified; G81.94 Hemiplegia, unspecified affecting left nondominant side; G93.49 Other encephalopathy; Z66 Do not resuscitate; R29.6 Repeated falls; D47.3 Essential (hemorrhagic) thrombocythemia; Z96.641 Presence of right artificial hip joint; R29.706 NIHSS score 6; E03.9 Hypothyroidism, unspecified; D53.9 Nutritional anemia, unspecified; D32.9 Benign neoplasm of meninges, unspecified; Z85.3 Personal history of malignant neoplasm of breast; Z90.13 Acquired absence of bilateral breasts and nipples; Z90.49 Acquired absence of other specified parts of digestive tract; Z90.710 Acquired absence of both cervix and uterus
CPT/HCPCS: 36415; 36416; 70450; 70496; 70498; 70551; 71045; 80048; 80053; 80061; 80307; 81003; 83036; 83690; 83735; 84146; 84439; 84443; 84484; 85025; 93005; 93306; 94760; 95712; 95816; 95819; 95957; J1650; J3411; J3475; J3490; Q9967

== ENCOUNTER 2021-03-19 15:05 | Inpatient (IN) | payer MEDICARE ==
[2021-03-19 16:34] LABS: ALT (SGPT) 13 U/L (8-55); AST (SGOT) 36 U/L (5-34); Albumin 3.8 g/dL (3.4-4.8); Alkaline Phosphatase 125 U/L (40-110); Anion Gap 16 mmol/L (10-20); BUN (Urea Nitrogen) 16 mg/dL (9.8-20.1); Bilirubin, Total 0.8 mg/dL (0.2-1.2); CK (CPK) 537 U/L (29-168); Calc. Creatinine Clearance 0 mL/min (70-130); Calcium 9.4 mg/dL (7.8-10.44); Carbon Dioxide 21 mmol/L (23-31); Chloride 102 mmol/L (98-107); Globulin 3.1 g/dL (2.4-3.5); Glucose 105 mg/dL (83-110); Protein, Total 6.9 g/dL (5.8-8.1); Sodium 135 mmol/L (136-145)
[2021-03-19 17:02] LABS: Hemoglobin 13.5 g/dL (12.0-16.0); Red Blood Cell (RBC) Count 3.51 mill/uL (4.20-5.40); White Blood Cell (WBC) Count 19.4 thou/uL (4.8-10.8)
[2021-03-19 17:03] LABS: #Lymphocytes 1.1 thou/uL (1.20-3.40); #Monocytes 1.3 thou/uL (0.11-0.59); %Basophils 0.1 % (0.0-1.0); %Eosinophils 0.1 % (0.0-10.0); %Lymphocytes 5.6 % (21.0-51.0); %Monocytes 6.5 % (0.0-10.0); %Neutrophils 87.8 % (42.0-75.0)
[2021-03-19 17:08] LABS: PTT 37.1 sec (22.9-36.1); Prothrombin Time 13.4 sec (12.0-14.7)
[2021-03-19 17:15] LABS: MDiff Complete? YES; Macrocytosis SLIGHT = 6-15 cells (100X) (0-5/hpf); Mean Corpuscular HGB CONC 35.3 g/dL (32.0-36.0); Mean Corpuscular Hemoglobin 38.6 pg (27.0-31.0); Mean Platelet Volume 6.7 fL (7.4-10.4); Platelet Count 561 thou/uL (130-400); Platelet Morphology Comment Appears Increased; RBC Distribution Width 12.9 % (11.5-14.5)
[2021-03-19] MEDS ORDERED: Morphine 4 MG/ML VIAL ONE (17:40)
[2021-03-19] MEDS ORDERED: Ondansetron PF 4 MG/2 ML Vial ONE (17:41)
[2021-03-19 17:49] LABS: Bilirubin Negative (Negative); Blood, Urine Trace (Negative); Clarity Clear (Clear); Glucose, Urine (Dipstick) Normal (Negative); Ketone, Urine 60 mg/dL (Negative); Leukocyte 500 Leu/uL (Negative); Nitrite 2+ (Negative); Protein, Urine (Dipstick) 30 mg/dL (Neg-Trace); RBC/HPF 0-3 HPF (0-3); Specific Gravity, Urine 1.025 (1.002-1.036); Squamous Epithelial None Seen HPF (0-3); WBC/HPF Greater than 50 HPF (0-3)
[2021-03-19 17:53] LABS: Bacteria/HPF 1+ HPF (None Seen)
[2021-03-19] MEDS ORDERED: ceFAZolin 2 GM/DEX 5% 100 ML BAG IVPB SCH (18:15)
[2021-03-19] MEDS ORDERED: Ondansetron PF 4 MG/2 ML Vial IVP PRN (21:35)
[2021-03-19] MEDS ORDERED: Cyclobenzaprine 10 MG TAB PO PRN (21:35)
[2021-03-19] MEDS ORDERED: hydrALAZINE 20 MG/ML VIAL SLOW IVP PRN (21:35)
[2021-03-19] MEDS ORDERED: Ondansetron ODT 4 MG TAB PO PRN (21:35)
[2021-03-19] MEDS ORDERED: Dextrose 5% in Water 1,000 ML IV PRN (21:35)
[2021-03-19] MEDS ORDERED: Acetaminophen 500 MG TAB PO SCH (21:35)
[2021-03-19] MEDS ORDERED: Dextrose 50% Abboject 50 ML SYRINGE SLOW IVP PRN (21:35)
[2021-03-19] MEDS ORDERED: traMADol HCl 50 MG TAB PO PRN ×2 (21:35)
[2021-03-19] MEDS ORDERED: Morphine 4 MG/ML VIAL SLOW IVP PRN (21:43)
[2021-03-19] MEDS ORDERED: Famotidine 20 MG TAB PO SCH (22:15)
[2021-03-19 22:58] VITALS: BMI 25.0
[2021-03-19] MEDS: Sodium Chloride 0.9% 1,000 ML IV SCH (23:38)
[2021-03-19] MEDS: Ibuprofen 200 MG TAB PO SCH (23:38)
[2021-03-19] MEDS: Acetaminophen 325 MG TAB PO SCH (23:38)
[2021-03-20 01:37] LABS: SARS-CoV-2 NAA Rapid Test Not Detected (NotDetected)
[2021-03-20 06:29] LABS: #Eosinphils 0.2 thou/uL (0.0-0.7); #Lymphocytes 1.4 thou/uL (1.20-3.40); #Monocytes 1.2 thou/uL (0.11-0.59); #Neutrophils 9.5 thou/uL (1.40-6.50); %Basophils 0.1 % (0.0-1.0); %Eosinophils 1.5 % (0.0-10.0); %Lymphocytes 11.2 % (21.0-51.0); %Monocytes 9.9 % (0.0-10.0); %Neutrophils 77.3 % (42.0-75.0); Hemoglobin 11.8 g/dL (12.0-16.0); Mean Corpuscular Hemoglobin 38.6 pg (27.0-31.0); Mean Platelet Volume 6.6 fL (7.4-10.4); Platelet Count 521 thou/uL (130-400); RBC Distribution Width 12.9 % (11.5-14.5); Red Blood Cell (RBC) Count 3.06 mill/uL (4.20-5.40); White Blood Cell (WBC) Count 12.2 thou/uL (4.8-10.8)
[2021-03-20] MEDS: Sodium Chloride 0.9% 1,000 ML IV SCH (06:34)
[2021-03-20] MEDS: Acetaminophen 325 MG TAB PO SCH ×4 (06:35→23:48)
[2021-03-20] MEDS: Ibuprofen 200 MG TAB PO SCH ×3 (06:35→21:06)
[2021-03-20 06:45] LABS: Anion Gap 12 mmol/L (10-20); BUN (Urea Nitrogen) 15 mg/dL (9.8-20.1); CK (CPK) 446 U/L (29-168); Calc. Creatinine Clearance 70 mL/min (70-130); Calcium 8.5 mg/dL (7.8-10.44); Carbon Dioxide 22 mmol/L (23-31); Chloride 105 mmol/L (98-107); Glucose 93 mg/dL (83-110); Magnesium 1.6 mg/dL (1.6-2.6); Phosphorus 2.8 mg/dL (2.3-4.7); Potassium 3.4 mmol/L (3.5-5.1); Sodium 136 mmol/L (136-145)
[2021-03-20] MEDS ORDERED: Fentanyl 100 MCG/2 ML VIAL ONE (07:39)
[2021-03-20] MEDS ORDERED: Phenylephrine 10 MG/ML VIAL ONE (07:46)
[2021-03-20] MEDS ORDERED: ceFAZolin 2 GM/DEX 5% 100 ML BAG ONE (07:50)
[2021-03-20] MEDS ORDERED: PROPOFOL 200 MG/20 ML VIAL ONE (08:09)
[2021-03-20] MEDS ORDERED: Rocuronium Bromide 10 MG/ML (10ML VIAL) ONE (08:09)
[2021-03-20] MEDS ORDERED: Ondansetron PF 4 MG/2 ML Vial ONE (08:09)
[2021-03-20] MEDS ORDERED: PHENYLEPHRINE-NS 100 MCG/ML 10 ML SYRINGE ONE (08:09)
[2021-03-20] MEDS ORDERED: Lidocaine 1% PF 5 ML VIAL ONE (08:09)
[2021-03-20] MEDS ORDERED: Glycopyrrolate 0.2 MG/ML 5 ML SYRINGE ONE (08:09)
[2021-03-20] MEDS ORDERED: Dexamethasone 20 MG/5 ML VIAL ONE (08:09)
[2021-03-20] MEDS: Famotidine 20 MG TAB PO SCH ×3 (08:48→21:05)
[2021-03-20] MEDS ORDERED: FLU VACC QS2021-22(65YR UP)/PF 240 MCG/0.7 ML SYRINGE IM ONE (09:00)
[2021-03-20] MEDS ORDERED: Promethazine HCl 25 MG/ML VIAL IM PRN (09:27)
[2021-03-20] MEDS ORDERED: Ondansetron HCl/PF 4 MG/2 ML Vial IVP PRN (09:27)
[2021-03-20] MEDS ORDERED: Promethazine HCl 25 MG/ML VIAL IVPB PRN (09:27)
[2021-03-20 09:30] LABS: Bacteria/HPF None Seen HPF (None Seen); Bilirubin Negative (Negative); Blood, Urine 1+ (Negative); Clarity Turbid (Clear); Glucose, Urine (Dipstick) Normal (Negative); Ketone, Urine 10 mg/dL (Negative); Leukocyte 500 Leu/uL (Negative); Nitrite 2+ (Negative); Protein, Urine (Dipstick) 50 mg/dL (Neg-Trace); Specific Gravity, Urine 1.024 (1.002-1.036); Squamous Epithelial 0-3 HPF (0-3); Urobilinogen Normal mg/dL (Less than 2); WBC/HPF Greater than 50 HPF (0-3)
[2021-03-20] MEDS: ceFAZolin Sodium/D5W 2 GM in Premix Bag 1 BAG IVPB SCH ×2 (14:48→21:06)
[2021-03-21 05:10] LABS: #Eosinphils 0.1 thou/uL (0.0-0.7); #Lymphocytes 1.9 thou/uL (1.20-3.40); #Monocytes 1.5 thou/uL (0.11-0.59); #Neutrophils 9.2 thou/uL (1.40-6.50); %Basophils 0.3 % (0.0-1.0); %Eosinophils 0.6 % (0.0-10.0); %Lymphocytes 14.9 % (21.0-51.0); %Monocytes 12.1 % (0.0-10.0); %Neutrophils 72.1 % (42.0-75.0); Hemoglobin 11.4 g/dL (12.0-16.0); Mean Corpuscular HGB CONC 34.7 g/dL (32.0-36.0); Mean Corpuscular Hemoglobin 37.9 pg (27.0-31.0); Mean Platelet Volume 6.6 fL (7.4-10.4); Platelet Count 593 thou/uL (130-400); RBC Distribution Width 12.7 % (11.5-14.5); Red Blood Cell (RBC) Count 3.02 mill/uL (4.20-5.40); White Blood Cell (WBC) Count 12.8 thou/uL (4.8-10.8)
[2021-03-21] MEDS: Ibuprofen 200 MG TAB PO SCH ×3 (05:58→21:58)
[2021-03-21] MEDS: Acetaminophen 325 MG TAB PO SCH ×3 (05:58→17:05)
[2021-03-21] MEDS: ceFAZolin Sodium/D5W 2 GM in Premix Bag 1 BAG IVPB SCH ×2 (06:36→15:06)
[2021-03-21] MEDS: Famotidine 20 MG TAB PO SCH ×2 (08:39→21:57)
[2021-03-21] MEDS ORDERED: Magnesium Sulfate 3 GM in Sodium Chloride 0.9% 250 ML 250 ML IVPB SCH (13:30)
[2021-03-21] MEDS: ALPRAZolam 0.25 MG TAB PO SCH ×3 (14:04→21:58)
[2021-03-21] MEDS: Amitriptyline HCl 100 MG TAB PO SCH (21:57)
[2021-03-21] MEDS: Aspirin 81 mg Enteric Coated Tablet PO SCH (21:57)
[2021-03-21] MEDS: Senokot S 8.6-50 MG TAB PO SCH (21:57)
[2021-03-21] MEDS: Hydroxyurea 500 MG CAP PO SCH (21:58)
[2021-03-22] MEDS: Acetaminophen 325 MG TAB PO SCH ×4 (01:39→17:07)
[2021-03-22] MEDS: Ibuprofen 200 MG TAB PO SCH ×3 (05:18→20:54)
[2021-03-22 05:37] LABS: #Eosinphils 0.3 thou/uL (0.0-0.7); #Lymphocytes 1.9 thou/uL (1.20-3.40); #Monocytes 1.1 thou/uL (0.11-0.59); #Neutrophils 5.7 thou/uL (1.40-6.50); %Basophils 0.5 % (0.0-1.0); %Eosinophils 3.5 % (0.0-10.0); %Lymphocytes 21.3 % (21.0-51.0); %Monocytes 11.9 % (0.0-10.0); %Neutrophils 62.8 % (42.0-75.0); Hemoglobin 10.9 g/dL (12.0-16.0); Mean Corpuscular Hemoglobin 37.4 pg (27.0-31.0); Mean Platelet Volume 6.7 fL (7.4-10.4); Platelet Count 533 thou/uL (130-400); RBC Distribution Width 12.7 % (11.5-14.5); Red Blood Cell (RBC) Count 2.91 mill/uL (4.20-5.40)
[2021-03-22] MEDS: Polyethylene Glycol 3350 17 GM Packet PO SCH (09:24)
[2021-03-22] MEDS: ALPRAZolam 0.25 MG TAB PO SCH ×4 (09:24→20:54)
[2021-03-22] MEDS: Famotidine 20 MG TAB PO SCH ×2 (09:24→20:55)
[2021-03-22] MEDS: Multivitamin W/ Minerals 1 TAB PO SCH (09:24)
[2021-03-22] MEDS: Aspirin 81 mg Enteric Coated Tablet PO SCH ×2 (09:24→20:54)
[2021-03-22] MEDS: Hydroxyurea 500 MG CAP PO SCH ×2 (09:24→20:55)
[2021-03-22] MEDS: Senokot S 8.6-50 MG TAB PO SCH ×2 (09:24→20:55)
[2021-03-22] MEDS: Amitriptyline HCl 100 MG TAB PO SCH (20:54)
[2021-03-23] MEDS: Acetaminophen 325 MG TAB PO SCH ×3 (00:18→12:25)
[2021-03-23 05:48] LABS: #Eosinphils 0.4 thou/uL (0.0-0.7); #Lymphocytes 1.8 thou/uL (1.20-3.40); #Monocytes 0.7 thou/uL (0.11-0.59); #Neutrophils 5.1 thou/uL (1.40-6.50); %Basophils 0.5 % (0.0-1.0); %Eosinophils 5.1 % (0.0-10.0); %Lymphocytes 22.3 % (21.0-51.0); %Monocytes 8.7 % (0.0-10.0); %Neutrophils 63.5 % (42.0-75.0); Hemoglobin 9.9 g/dL (12.0-16.0); Mean Corpuscular HGB CONC 34.6 g/dL (32.0-36.0); Mean Corpuscular Hemoglobin 37.5 pg (27.0-31.0); Mean Platelet Volume 6.8 fL (7.4-10.4); Platelet Count 564 thou/uL (130-400); RBC Distribution Width 12.6 % (11.5-14.5); Red Blood Cell (RBC) Count 2.63 mill/uL (4.20-5.40)
[2021-03-23] MEDS: Ibuprofen 200 MG TAB PO SCH ×2 (05:54→15:36)
[2021-03-23 08:19] VITALS: TEMP 97.6
[2021-03-23] MEDS ORDERED: Ferrous Sulfate 325 MG TAB PO SCH (09:00)
[2021-03-23] MEDS ORDERED: Ascorbic Acid 500 mg Chewable Tablet PO SCH (09:00)
[2021-03-23] MEDS: Senokot S 8.6-50 MG TAB PO SCH (09:37)
[2021-03-23] MEDS: Aspirin 81 mg Enteric Coated Tablet PO SCH (09:37)
[2021-03-23] MEDS: Hydroxyurea 500 MG CAP PO SCH (09:37)
[2021-03-23] MEDS: Polyethylene Glycol 3350 17 GM Packet PO SCH (09:37)
[2021-03-23] MEDS: Multivitamin W/ Minerals 1 TAB PO SCH (09:37)
[2021-03-23] MEDS: Famotidine 20 MG TAB PO SCH (09:37)
[2021-03-23] MEDS: ALPRAZolam 0.25 MG TAB PO SCH ×2 (09:37→12:25)
[2021-03-23 12:15] VITALS: BP 164/81
== END 2021-03-23 15:30 | disposition swing bed (61) | DRG 522 ==
LOC: ERS 15:05 → SURG A 18:44
PROVIDERS: ADMIT Specialist; ATTEND Specialist
PROC: 0SRR0JZ Replacement of Right Hip Joint, Femoral Surface with Synthetic Substitute, Open Approach (ICD-10-PCS; principal; 2021-03-20)
DX: S72.011A Unspecified intracapsular fracture of right femur, initial encounter for closed fracture (principal); N39.0 Urinary tract infection, site not specified; M62.82 Rhabdomyolysis; E86.0 Dehydration; Z20.822 Contact with and (suspected) exposure to COVID-19; W19.XXXA Unspecified fall, initial encounter; Z85.3 Personal history of malignant neoplasm of breast; Z90.13 Acquired absence of bilateral breasts and nipples; Z90.49 Acquired absence of other specified parts of digestive tract; Z90.710 Acquired absence of both cervix and uterus; Z87.891 Personal history of nicotine dependence
CPT/HCPCS: 36415; 70450; 71045; 72125; 72170; 80048; 80053; 81001; 81003; 81015; 82550; 83735; 84100; 84484; 85025; 85610; 85730; 87086; 93005; 96365; 96366; 96375; C1776; G0390; J1100; J1956; J2270; J2370; J2405; J2704; J3010; J3475; J7050; U0002

== ENCOUNTER 2022-01-31 12:52 | Outpatient (CLI) | payer MEDICARE ==
[2022-01-31 14:11] LABS: Mean Corpuscular HGB CONC 34.7 g/dL (32.0-36.0); Mean Corpuscular Hemoglobin 37.2 pg (27.0-33.0); Mean Corpuscular Volume 107.1 fl (81.6-98.3); Mean Platelet Volume 9.2 fl (7.4-10.4); Platelet Count 410 10x3/uL (150-450); RBC Distribution Width 14.1 % (11.5-14.5); Red Blood Cell (RBC) Count 3.23 10x6/uL (3.90-5.03); White Blood Cell (WBC) Count 6.2 10x3/uL (3.5-10.5)
[2022-01-31 14:26] LABS: INR-International Normal Ratio 0.9; PTT 27.6 sec (22.0-33.0); Prothrombin Time 10.2 sec (9.5-12.1)
[2022-01-31 14:35] LABS: Anion Gap 13 mmol/L (10-20); BUN (Urea Nitrogen) 15 mg/dL (9.8-20.1); Calc. Creatinine Clearance 0 mL/min (70-130); Calcium 10.6 mg/dL (7.8-10.44); Carbon Dioxide 28 mmol/L (23-31); Chloride 101 mmol/L (98-107); Estimated GFR 63; Glucose 110 mg/dL (83-110); Potassium 4.1 mmol/L (3.5-5.1); Sodium 138 mmol/L (136-145)
== END 2022-01-31 12:53 | disposition home or self-care (01) ==
LOC: LABBT 12:52
PROVIDERS: ATTEND Surgery
DX: Z01.818 Encounter for other preprocedural examination (principal); D32.9 Benign neoplasm of meninges, unspecified; Z20.822 Contact with and (suspected) exposure to COVID-19
CPT/HCPCS: 80048; 85027; 85610; 85730; 87811; 93005; 93010

== ENCOUNTER 2022-01-31 13:15 | Inpatient (IN) | payer OTHER, MEDICARE ==
[2022-02-03] MEDS ORDERED: Lidocaine 1% MPF 2 ML VIAL ONE ×2 (09:31→14:23)
[2022-02-03] MEDS ORDERED: CEFAZOLIN 2 GM VIAL ONE (09:31)
[2022-02-03] MEDS ORDERED: Sodium Chloride 0.9% 0 ML ONE (09:31)
[2022-02-03] MEDS ORDERED: Thrombin 5000 UNITS/5 ML VIAL ONE (13:54)
[2022-02-03] MEDS ORDERED: Bacitracin Zinc Ointment 30 gm TUBE ONE (14:03)
[2022-02-03] MEDS ORDERED: fentaNYL Citrate/PF 100 MCG/2 ML SYRINGE ONE ×2 (14:06→15:59)
[2022-02-03] MEDS ORDERED: Dexmedetomidine 200 MCG/2 ML VIAL ONE (14:06)
[2022-02-03] MEDS ORDERED: Ondansetron PF 4 MG/2 ML Vial ONE (14:23)
[2022-02-03] MEDS ORDERED: Esmolol 100 MG/10 ML VIAL ONE (14:23)
[2022-02-03] MEDS ORDERED: Dexamethasone 20 MG/5 ML VIAL ONE (14:23)
[2022-02-03] MEDS ORDERED: PROPOFOL 200 MG/20 ML VIAL ONE (14:23)
[2022-02-03] MEDS ORDERED: Rocuronium Bromide 10 MG/ML (10ML VIAL) ONE (14:23)
[2022-02-03] MEDS ORDERED: Propofol 500 MG/50 ML VIAL ONE (14:43)
[2022-02-03] MEDS ORDERED: Cepastat Lozenges 1 LOZ PO PRN (14:46)
[2022-02-03] MEDS ORDERED: Acetaminophen 325 MG TAB PO PRN (14:46)
[2022-02-03] MEDS ORDERED: hydrALAZINE 20 MG/ML VIAL SLOW IVP PRN (14:46)
[2022-02-03] MEDS ORDERED: Morphine 2 MG/ML VIAL SLOW IVP PRN (14:46)
[2022-02-03] MEDS ORDERED: Promethazine HCl 12.5 MG in Sodium Chloride 0.9% 50 ML IVPB PRN (14:51)
[2022-02-03] MEDS ORDERED: ALPRAZolam 0.25 MG TAB PO PRN (14:52)
[2022-02-03] MEDS ORDERED: traMADol HCl 50 MG TAB PO PRN (14:52)
[2022-02-03] MEDS ORDERED: levETIRAcetam 500 MG/5 ML VIAL ONE ×2 (15:13→15:15)
[2022-02-03] MEDS ORDERED: SUGAMMADEX SODIUM 200 MG/2 ML VIAL ONE (16:05)
[2022-02-03] MEDS ORDERED: Ondansetron HCl/PF 4 MG/2 ML Vial IVP PRN (16:40)
[2022-02-03] MEDS ORDERED: Promethazine HCl 25 MG/ML VIAL IM PRN (16:40)
[2022-02-03] MEDS ORDERED: Promethazine HCl 25 MG/ML VIAL IVPB PRN (16:40)
[2022-02-03] MEDS ORDERED: hydrALAZINE 20 MG/ML VIAL ONE (17:26)
[2022-02-03] MEDS ORDERED: Fentanyl 100 MCG/2 ML VIAL ONE ×2 (17:29→18:50)
[2022-02-03] MEDS ORDERED: CEFAZOLIN 2 GM in Sodium Chloride 0.9% 100 ML IVPB SCH (18:00)
[2022-02-03] MEDS: Sodium Chloride 0.9% 1,000 ML IV SCH (20:46)
[2022-02-03] MEDS: Amitriptyline HCl 100 MG TAB PO SCH (20:47)
[2022-02-03] MEDS: Docusate 100 MG CAP PO SCH (20:47)
[2022-02-03] MEDS: Calcium Carbonate 600 MG TAB PO SCH (20:47)
[2022-02-03] MEDS: levETIRAcetam 500 MG/5 ML VIAL SLOW IVP SCH (20:47)
[2022-02-03] MEDS: Ascorbic Acid 500 mg Chewable Tablet PO SCH (20:47)
[2022-02-03] MEDS: Hydroxyurea 500 MG CAP PO SCH (20:47)
[2022-02-03] MEDS: HYDROcodone/Acetaminophen 7.5/325 mg Tablet PO PRN (20:50)
[2022-02-04] MEDS: CEFAZOLIN 2 GM in Sodium Chloride 0.9% 100 ML IVPB SCH ×3 (00:37→15:58)
[2022-02-04] MEDS: Sodium Chloride 0.9% 1,000 ML IV SCH ×2 (04:49→09:57)
[2022-02-04] MEDS: Levothyroxine Sodium 100 MCG TAB PO SCH (05:57)
[2022-02-04] MEDS ORDERED: BIOTIN 10000 MCG PO SCH (09:00)
[2022-02-04] MEDS: Hydroxyurea 500 MG CAP PO SCH ×2 (09:57→21:12)
[2022-02-04] MEDS: Cholecalciferol 1,000 UNITS (25 MCG) TAB PO SCH (09:58)
[2022-02-04] MEDS: levETIRAcetam 500 MG/5 ML VIAL SLOW IVP SCH (09:58)
[2022-02-04] MEDS: Citalopram 20 MG TAB PO SCH (10:00)
[2022-02-04] MEDS: Multivitamin W/ Minerals 1 TAB PO SCH (10:00)
[2022-02-04] MEDS: Ascorbic Acid 500 mg Chewable Tablet PO SCH ×2 (10:00→20:58)
[2022-02-04] MEDS: Docusate 100 MG CAP PO SCH ×2 (10:00→20:59)
[2022-02-04] MEDS: Calcium Carbonate 600 MG TAB PO SCH ×2 (10:00→20:58)
[2022-02-04] MEDS: Dexamethasone 4 MG TAB PO SCH ×3 (10:34→20:57)
[2022-02-04] MEDS: Acetaminophen/Codeine 30-300mg Tablet PO PRN ×2 (13:24→20:57)
[2022-02-04 13:53] VITALS: BMI 25.3
[2022-02-04] MEDS: Amitriptyline HCl 100 MG TAB PO SCH (20:58)
[2022-02-04] MEDS: levETIRAcetam 500 MG TAB PO SCH (20:59)
[2022-02-05] MEDS: Dexamethasone 4 MG TAB PO SCH ×4 (01:53→23:28)
[2022-02-05] MEDS: CEFAZOLIN 2 GM in Sodium Chloride 0.9% 100 ML IVPB SCH ×4 (01:53→18:23)
[2022-02-05] MEDS: Acetaminophen/Codeine 30-300mg Tablet PO PRN (05:07)
[2022-02-05] MEDS: Levothyroxine Sodium 100 MCG TAB PO SCH (05:07)
[2022-02-05] MEDS: Sodium Chloride 0.9% 1,000 ML IV SCH ×2 (05:40→21:20)
[2022-02-05] MEDS ORDERED: Dexamethasone 1 MG TAB PO SCH (08:00)
[2022-02-05] MEDS: Cholecalciferol 1,000 UNITS (25 MCG) TAB PO SCH (09:18)
[2022-02-05] MEDS: Hydroxyurea 500 MG CAP PO SCH ×2 (09:19→21:23)
[2022-02-05] MEDS: Docusate 100 MG CAP PO SCH ×2 (09:19→21:22)
[2022-02-05] MEDS: levETIRAcetam 500 MG TAB PO SCH ×2 (09:19→21:21)
[2022-02-05] MEDS: Citalopram 20 MG TAB PO SCH (09:19)
[2022-02-05] MEDS: Calcium Carbonate 600 MG TAB PO SCH ×2 (09:19→21:22)
[2022-02-05] MEDS: Multivitamin W/ Minerals 1 TAB PO SCH (09:19)
[2022-02-05] MEDS: Ascorbic Acid 500 mg Chewable Tablet PO SCH ×2 (09:20→21:24)
[2022-02-05] MEDS: HYDROcodone/Acetaminophen 7.5/325 mg Tablet PO PRN (18:22)
[2022-02-05] MEDS: Amitriptyline HCl 100 MG TAB PO SCH (21:22)
[2022-02-06] MEDS: Levothyroxine Sodium 100 MCG TAB PO SCH (05:36)
[2022-02-06] MEDS ORDERED: Dexamethasone 1 MG TAB PO SCH (08:00)
[2022-02-06] MEDS: HYDROcodone/Acetaminophen 7.5/325 mg Tablet PO PRN ×2 (09:02→18:02)
[2022-02-06] MEDS: Citalopram 20 MG TAB PO SCH (09:03)
[2022-02-06] MEDS: Multivitamin W/ Minerals 1 TAB PO SCH (09:03)
[2022-02-06] MEDS: levETIRAcetam 500 MG TAB PO SCH ×2 (09:03→20:30)
[2022-02-06] MEDS: Docusate 100 MG CAP PO SCH ×2 (09:03→20:31)
[2022-02-06] MEDS: Cholecalciferol 1,000 UNITS (25 MCG) TAB PO SCH (09:03)
[2022-02-06] MEDS: Calcium Carbonate 600 MG TAB PO SCH ×2 (09:04→20:31)
[2022-02-06] MEDS: Ascorbic Acid 500 mg Chewable Tablet PO SCH ×2 (09:04→20:32)
[2022-02-06] MEDS: Hydroxyurea 500 MG CAP PO SCH ×2 (09:04→20:31)
[2022-02-06] MEDS: Sodium Chloride 0.9% 1,000 ML IV SCH ×2 (09:12→23:37)
[2022-02-06] MEDS: Dexamethasone 1 MG TAB PO SCH ×3 (12:13→23:37)
[2022-02-06] MEDS: Amitriptyline HCl 100 MG TAB PO SCH (20:31)
[2022-02-06] MEDS: Acetaminophen/Codeine 30-300mg Tablet PO PRN (20:38)
[2022-02-07] MEDS: Levothyroxine Sodium 100 MCG TAB PO SCH (05:21)
[2022-02-07] MEDS: Dexamethasone 1 MG TAB PO SCH ×2 (05:21→12:05)
[2022-02-07] MEDS ORDERED: Dexamethasone 1 MG TAB PO SCH (08:00)
[2022-02-07 09:37] VITALS: TEMP 97.7
[2022-02-07] MEDS: Ascorbic Acid 500 mg Chewable Tablet PO SCH (10:00)
[2022-02-07] MEDS: Cholecalciferol 1,000 UNITS (25 MCG) TAB PO SCH (10:01)
[2022-02-07] MEDS: Calcium Carbonate 600 MG TAB PO SCH (10:01)
[2022-02-07] MEDS: Docusate 100 MG CAP PO SCH (10:01)
[2022-02-07] MEDS: levETIRAcetam 500 MG TAB PO SCH (10:01)
[2022-02-07] MEDS: Citalopram 20 MG TAB PO SCH (10:02)
[2022-02-07] MEDS: Hydroxyurea 500 MG CAP PO SCH (10:02)
[2022-02-07] MEDS: Multivitamin W/ Minerals 1 TAB PO SCH (10:02)
[2022-02-07] MEDS: Sodium Chloride 0.9% 1,000 ML IV SCH (12:06)
[2022-02-07 13:40] VITALS: BP 121/71
[2022-02-08] MEDS ORDERED: Dexamethasone 1 MG TAB PO SCH (12:00)
[2022-02-10] MEDS ORDERED: Dexamethasone 1 MG TAB PO SCH (12:00)
== END 2022-02-07 15:15 | DRG 25 ==
LOC: SURG A 02-03 08:51 → CCU 02-03 19:06 → SURG A 02-04 16:11
PROVIDERS: ADMIT Surgery; ATTEND Surgery
PROC: 00B10ZZ Excision of Cerebral Meninges, Open Approach (ICD-10-PCS; principal; 2022-02-03)
PROC: 00BT0ZZ Excision of Spinal Meninges, Open Approach (ICD-10-PCS; 2022-02-03)
PROC: 0HQ0XZZ Repair Scalp Skin, External Approach (ICD-10-PCS; 2022-02-03)
DX: D32.9 Benign neoplasm of meninges, unspecified (principal); G93.6 Cerebral edema; S01.01XA Laceration without foreign body of scalp, initial encounter; W19.XXXA Unspecified fall, initial encounter; Y92.89 Other specified places as the place of occurrence of the external cause
CPT/HCPCS: 70450; 86850; 86900; 86901; 88307; 88341; 88342; 88360; 93970; C1713; J0360; J0690; J1100; J1953; J2405; J2704; J3010; J3370; J3490; J7050; J8540